=== PATIENT | female | born 1995 | race Caucasian/White ===

== ENCOUNTER 2020-12-18 13:14 | Emergency (ER) | payer MEDICAID, SELFPAY ==
[2020-12-18 13:26] VITALS: BP 138/77; PULSE 104; RESP 16; TEMP 36.6; O2SAT 95; BMI 41.6
--- NOTE | 2020-12-18 13:44 | HMH.EDUTC ---
[facility] [place] Clinical Impression: Asthma exacerbation Qualifiers: Asthma severity: unspecified severity Asthma persistence: unspecified Qualified Code(s): J45.901 - Unspecified asthma with (acute) exacerbation Disposition: Home, Self-Care Condition on Discharge: Good Instructions: DI for Asthma -- Adult Additional Instructions: Drink plenty of fluids. Take tylenol for pain or fever. Return if you begin to have difficulty breathing. Follow up with your regular doctor. GO TO THE ER FOR ANY WORSENING SYMPTOMS Prescriptions: Albuterol Sulfate [Albuterol 0.083% 2.5mg/3mL neb] 2.5 mg IH Q6HP PRN 30 Days #120 neb PRN Reason: Shortness Of Breath Transmission Status: Received by [facility] #[id number] predniSONE [Prednisone 20mg Tab] 20 mg PO BID 4 Days #8 tab Transmission Status: Received by [facility] #[id number] Azithromycin [Z-Yobani 250mg Tab*] 250 mg PO UD DOSE PK #6 tab Transmission Status: Received by [facility] #[id number] Referrals: Nellie Awad MD [Primary Care Provider] - Forms: Work/School Release Time of Disposition: 14:01 Medical Decision Making - Medical Records Medical records reviewed: No: I reviewed the patient's medical records. - Leo Inquiry Pt receiving controlled substance: No Vital Signs: 12/18/20 13:26 12/18/20 14:15 Temperature 98 F 98 F Temperature Source Oral Pulse Rate 88 Pulse Rate [Right] 104 H Respiratory Rate 16 19 Blood Pressure 127/71 Blood Pressure [Right Arm] 138/77 Blood Pressure Mean [Right Arm] 97 Blood Pressure Source [Right Arm] Automatic Cuff Blood Pressure Position [Right Arm] Sitting 02 Sat by Pulse Oximetry 95 Oxygen Delivery Method Room Air Orders (Tests/Meds): ED MEDICATIONS Discontinued Medications Generic Name Dose Route Start Last Admin Trade Name Freq PRN Reason Stop Dose Admin Albuterol Sulfate 2.5 mg 12/18/20 13:22 12/18/20 13:51 Albuterol 0.083% 2.5 Mg/3 Ml Neb IH 12/18/20 13:23 2.5 mg ONCE ONE [facility] [place] - General Stated complaint: soa, body feeling numb Time Seen by Provider: 12/18/20 13:46 Mode of Arrival: Ambulatory Source of Information: Patient Limitations: No Limitations Description of Symptoms (Recalled from Triage Doc. by RN): pt was push mowing the grass and she started having an asthma attack around 1240. she used her inhaler w/o any relief. she is still having soa and states her body is tingling. HEENT Symptoms (Recalled from RN notes): No Resp Symptoms (Recalled from RN notes): Yes (soa and asthma attack) Skin Symptoms (Recalled from RN notes): Yes (tingling sensation mostly around mouth and hands.) MS Symptoms (Recalled from RN notes): No Functional Status (Recalled from RN notes): na - History of Present Illness Provider Complaint: She has a history of asthma. Over the past 3 days she has been having worsening cough and congestion. She states that she has moved and lost her nebulizer machine and nebulizer medication. - Related Data Previous Rx's Medication Instructions Recorded Albuterol Sulfate [Albuterol 2.5 mg IH Q6HP PRN 30 Days #120 neb 12/18/20 0.083% 2.5mg/3mL neb] Azithromycin [Z-Yobani 250mg Tab*] 250 mg PO UD DOSE PK #6 tab 12/18/20 predniSONE [Prednisone 20mg 20 mg PO BID 4 Days #8 tab 12/18/20 Tab] Allergies Allergy/AdvReac Type Severity Reaction Status Date / Time No Known Allergies Allergy Verified 12/18/20 13:36 - Worker's Comp Is this a Worker's Comp case?: No [facility] History - Hepatitis A Screen Drug use history?: No High risk sexual behaviors?: No History of sexually transmitted infection?: No Currently employed?: No Childcare worker?: No Do you have indoor plumbing?: Yes Do you have electricity?: Yes Attestation statement:: This patient has been screened for Hepatitis A risk factors. I have reviewed the patient's past medical history: Yes - Social History Smoking Status: Nev
[2020-12-18 14:15] VITALS: BP 127/71; PULSE 88; RESP 19; TEMP 36.6
== END 2020-12-18 14:15 | disposition home or self-care (01) ==
PROVIDERS: Emergency Provider Nurse Practitioner Family; PCP Nurse Practitioner
DX: J45.901 Unspecified asthma with (acute) exacerbation (principal)
CPT/HCPCS: 99202; G0463

== ENCOUNTER 2022-02-09 10:15 | Emergency (ER) | payer MEDICAID, SELFPAY ==
--- NOTE | 2022-02-09 10:30 | XR_ITS ---
FINAL REPORT CLINICAL HISTORY: pain FINDINGS: LEFT ELBOW 3 views were obtained. There is no acute fracture or dislocation. The joint spaces are intact. There is no soft tissue abnormality. IMPRESSION: No acute bony abnormality. Reviewed, Interpreted and Dictated by Bradley Chavira III, MD Transcribed by Renetta Esquivel Authenticated and [facility]
--- NOTE | 2022-02-09 10:31 | XR_ITS ---
FINAL REPORT CLINICAL HISTORY: PT'S LEG GAVE OUT YESTERDAY, PAIN IN LT HIP FINDINGS: LEFT HIP Two views of the left hip including an AP pelvis demonstrate no acute fracture or dislocation. The joint spaces appear normal. The visualized bony structures are well aligned. No soft tissue abnormality is seen. IMPRESSION: No acute bony abnormality. Reviewed, Interpreted and Dictated by Bradley Chavira III, MD Transcribed by Renetta Esquivel Authenticated and [facility]
--- NOTE | 2022-02-09 10:32 | XR_ITS ---
FINAL REPORT CLINICAL HISTORY: PT FELL YESTERDAY FINDINGS: LEFT HUMERUS 2 views were obtained. There is no acute fracture or dislocation. The joint spaces are intact. There is no soft tissue abnormality. IMPRESSION: No acute bony abnormality. Reviewed, Interpreted and Dictated by Bradley Chavira III, MD Transcribed by Renetta Esquivel Authenticated and [facility]
--- NOTE | 2022-02-09 10:32 | XR_ITS ---
FINAL REPORT CLINICAL HISTORY: PT'S LEG GAVE OUT YESTERDAY, PAIN @ LATERAL EPICONDYLE FINDINGS: LEFT KNEE 3 views of the left knee were obtained. There is no acute fracture or dislocation. Visualized joint spaces are normally aligned. Soft tissues are unremarkable. IMPRESSION: No acute bony abnormality. Reviewed, Interpreted and Dictated by Bradley Chavira III, MD Transcribed by Renetta Esquivel Authenticated and [facility]
--- NOTE | 2022-02-09 10:46 | HMH.EDUTC ---
[facility] [place] Clinical Impression: Medial epicondylitis, left elbow, Left thigh pain Disposition: Home, Self-Care Condition on Discharge: Good Instructions: DI for Medial Epicondylitis, DI for Leg Pain Additional Instructions: Go home and rest. It would be best if you rested tomorrow too. No heavy lifting. No twisting. Take the medications as directed. The muscle relaxer (cyclobenzaprine--Flexeril) will make you drowsy, so don't drive or operate heavy machinery after taking it. Follow up with Dr. Gaviria (orthopedics) if you continue to have problems with your elbow or your leg. I put in a referral but you need to call his office and schedule an appointment. Follow up with your regular doctor. Follow up with your regular doctor. GO TO THE ER FOR ANY WORSENING SYMPTOMS OR CONCERN, ESPECIALLY BOWEL OR BLADDER ISSUES, SADDLE AREA NUMBNESS, FEVER, ETC Prescriptions: Cyclobenzaprine HCl [Cyclobenzaprine 10mg Tab] 10 mg PO BIDP PRN #20 tab PRN Reason: Muscle Spasm Transmission Status: Received by [facility] [place] methylPREDNISolone [Medrol] 4 mg PO DIRECTED 6 Days #21 packet Transmission Status: Received by [facility] [place] Referrals: Provider,MD Ayleen [Primary Care Provider] - Omar Gaviria MD [Staff Physician] - Forms: Work/School Release Time of Disposition: 11:39 Medical Decision Making - Medical Records Medical records reviewed: No: I reviewed the patient's medical records. - Leo Inquiry Pt receiving controlled substance: No Vital Signs: 02/09/22 10:47 02/09/22 11:44 Temperature 97.6 F 97.6 F Temperature Source Oral Pulse Rate 76 Pulse Rate [Left Radial] 76 Respiratory Rate 17 17 Blood Pressure 164/68 H Blood Pressure [Right Arm] 164/68 H Blood Pressure Mean [Right Arm] 100 02 Sat by Pulse Oximetry 95 [facility] [place] - General Stated complaint: left leg and left elbow pain, no accidnet Time Seen by Provider: 02/09/22 10:46 - History of Present Illness Provider Complaint: She c/o left elbow and left thigh pain for the past 1 day. Her elbow is most sore on the medial aspect of it. She denies any known injury or fall to her arm or leg. - Related Data Previous Rx's Medication Instructions Recorded Albuterol Sulfate [Albuterol 2.5 mg IH Q6HP PRN 30 Days #120 neb 12/18/20 0.083% 2.5mg/3mL neb] Azithromycin [Z-Yobani 250mg Tab*] 250 mg PO UD DOSE PK #6 tab 12/18/20 predniSONE [Prednisone 20mg 20 mg PO BID 4 Days #8 tab 12/18/20 Tab] Cyclobenzaprine HCl 10 mg PO BIDP PRN #20 tab 02/09/22 [Cyclobenzaprine 10mg Tab] methylPREDNISolone [Medrol] 4 mg PO DIRECTED 6 Days #21 02/09/22 packet Allergies Allergy/AdvReac Type Severity Reaction Status Date / Time No Known Allergies Allergy Verified 02/09/22 10:50 [facility] History - Hepatitis A Screen Attestation statement:: This patient has been screened for Hepatitis A risk factors. I have reviewed the patient's past medical history: Yes - Social History Smoking Status: Never smoker Alcohol Intake: never Occupational Status: employed ROS Obtained: Yes All systems reviewed & no additional complaints - Constitutional Constitutional: Denies chills, Denies fever(s) - Musculoskeletal Musculoskeletal: Reports as per HPI - Integumentary/Breasts Skin/Breast: Denies redness, Denies rash, Denies wounds - Neurologic Neurologic: Denies tingling/numbness/burning sensations Physical Exam - General General appearance: alert, in no apparent distress - Head Head exam: atraumatic, normocephalic, normal inspection - Eye Eye exam: Present: normal appearance, PERRL, EOMI - ENT ENT exam: Present: normal exam, normal oropharynx, mucous membranes moist, TM's normal bilaterally, normal external ear exam - Neck Neck exam: Present: normal inspection, full ROM, trachea midline. Absent: meningismus, lymphadenopathy - Chest Chest inspection: Present: normal inspection, s
[2022-02-09 10:47] VITALS: BP 164/68; PULSE 76; RESP 17; TEMP 36.4; O2SAT 95; BMI 41.3
[2022-02-09 11:44] VITALS: BP 164/68; PULSE 76; RESP 17; TEMP 36.4
== END 2022-02-09 11:47 | disposition home or self-care (01) ==
PROVIDERS: Emergency Provider Nurse Practitioner Family
DX: M77.02 Medial epicondylitis, left elbow (principal); M79.652 Pain in left thigh
CPT/HCPCS: 73060; 73080; 73502; 73564; 99284

== ENCOUNTER 2022-05-01 21:55 | Emergency (ER) | payer MEDICAID, SELFPAY ==
[2022-05-01 21:55] VITALS: BP 139/70; PULSE 118; RESP 20; TEMP 37.1; O2SAT 97; BMI 42.9
[2022-05-01 21:56] VITALS: BMI 42.9
--- NOTE | 2022-05-01 21:56 | XR_ITS ---
PROCEDURE INFORMATION: Exam: XR Chest Exam date and time: 05/01/2022 10:10 PM Age: 26 years old Clinical indication: Sternal or substernal pain; Additional info: Cp TECHNIQUE: Imaging protocol: Radiologic exam of the chest. Views: 2 views. COMPARISON: CR XR HUMERUS LT 02/09/2022 11:04 AM FINDINGS: Lungs: No consolidation. Pleural spaces: No pneumothorax. Heart/Mediastinum: No cardiomegaly. Bones/joints: No acute fracture. IMPRESSION: No acute findings.
[2022-05-01 22:02] LABS: Influenza A, PCR Not Detected (NotDetected); Influenza B, PCR Not Detected (NotDetected)
[2022-05-01 22:05] LABS: Basophils # 0.2 K/mm3 (0-0.2); Basophils % 1.4 % (0.1-2.0); Eosinophils # 0.5 K/mm3 (0.0-0.4); Eosinophils % 4.7 % (0.1-12.0); Hematocrit 43.6 % (37.0-47.0); Hemoglobin 14.2 g/dL (12.2-16.2); Lymphocytes # 1.8 K/mm3 (0.7-4.5); Lymphocytes % 17.2 % (10-50); Mean Corpuscular HGB Conc 32.6 g/dL (31.8-35.4); Mean Corpuscular Volume 85.9 fl (81-99); Mean Platelet Volume 8.1 fl (7.4-10.4); Monocytes # 0.4 K/mm3 (0.1-1.0); Monocytes % 4.1 % (1.7-9.3); Neutrophils # 7.5 K/mm3 (1.8-7.8); Neutrophils % 72.4 % (37.0-80.0); Platelet Count 343 K/mm3 (142-424); Red Blood Count 5.08 M/mm3 (4.20-5.40); Red Cell Distribution Width 14.5 % (11.5-17.5); White Blood Count 10.4 K/mm3 (4.8-10.8)
[2022-05-01 22:06] VITALS: PULSE 120
[2022-05-01 22:11] LABS: Alanine Aminotransferase 21 U/L (12-78); Albumin Level 3.9 g/dl (3.5-5.0); Alkaline Phosphatase 98 U/L (38-126); Amylase 74 U/L (30-110); Anion Gap 9.7 mEq/L (5-15); Aspartate Amino Transferase 19 U/L (14-36); Bilirubin,Direct 0.1 mg/dl (0.0-0.4); Bilirubin,Indirect 0.3 mg/dL (0.0-0.9); Bilirubin,Total 0.4 mg/dl (0.2-1.3); Bilirubin,Unconjugated 0.3 mg/dL (0.0-1.1); Blood Urea Nitrogen 14 mg/dl (7-17); Calcium 8.8 mg/dl (8.4-10.2); Carbon Dioxide 27 mmol/L (22.0-30.0); Chloride 107 mmol/L (98-107); Creatinine Clearance Estimated 119 mL/min (50-200); Estimated Glomerular Filt Rate 102 ml/min (>60); GFR (African American) 123 ML/MIN (>60); Glucose 131 mg/dl (74-100); Lipase 81 U/L (23-300); Magnesium 1.6 mg/dl (1.6-2.3); Potassium 3.7 mmoL/L (3.5-5.1); Sodium 140 mmol/L (136-145); Total Protein,Serum 7.3 g/dl (6.3-8.2)
[2022-05-01 22:15] LABS: HCG Qualitative, Serum Negative (Negative)
[2022-05-01 22:25] LABS: Troponin I < 0.01 ng/ml (0.00-0.034)
[2022-05-01 22:28] LABS: Procalcitonin 0.068 ng/mL (0.0-2.0)
[2022-05-01 22:30] LABS: Microscopic, Urine URINE MICROSCOPIC (MICROSCOPIC)
[2022-05-01 22:32] LABS: Appearance,Urine CLEAR (Clear); Bilirubin,Urine Negative (Negative); Blood, Urine Negative (Negative); Color,Urine YELLOW (Yellow); Glucose,Urine (UA) Negative (Negative); Ketones,Urine Negative (Negative); Leukocyte Esterase,Urine Negative (Negative); Nitrate,Urine Negative (Negative); PH,Urine 5.5 (5.0-8.5); Protein,Urine Negative (Negative); Specific Gravity, Urine 1.025 (1.005-1.030); Urobilinogen,Urine 0.2 EU/dl (0.2)
[2022-05-01 22:33] LABS: Coronavirus 19, PCR Detected (NotDetected)
[2022-05-01 22:35] LABS: Erythrocyte Sedimentation Rate 42 mm/hr (0-20)
[2022-05-01 22:43] LABS: Amorphous Sediment,Urine Trace /lpf; Bacteria,Urine Trace /lpf; WBC,Urine Occasional #/hpf (0-3)
[2022-05-01 23:00] VITALS: BP 136/81; PULSE 101; RESP 16; O2SAT 98
[2022-05-01 23:30] VITALS: BP 131/82; PULSE 111; RESP 16; O2SAT 98
--- NOTE | 2022-05-01 23:33 | HMH.EDCP ---
Discharge Plan Disposition Patient Disposition: Home, Self-Care Chief Complaint: Chest Pain Prescriptions Prescriptions: No Action albuterol sulfate 2.5 MG/NEB solution for nebulization 2.5 mg IH Q6HP PRN (Reason: Shortness Of Breath) 30 Days Qty: 120 5RF azithromycin 250 MG tablet 250 mg PO UD DOSE PK Qty: 6 0RF Rx Instructions: Take two (2) tablets today, then one (1) tablet days #2 thru #5 prednisone 20 MG tablet 20 mg PO BID 4 Days Qty: 8 0RF cyclobenzaprine 10 MG tablet 10 mg PO BIDP PRN (Reason: Muscle Spasm) Qty: 20 0RF methylprednisolone 4 MG tablets,dose pack 4 mg PO DIRECTED 6 Days Qty: 21 0RF Referrals Follow up/Referrals: Jolynn Aguirre APRN [Primary Care Provider] - See instructions Clinical Impressions Clinical Impression: Atypical chest pain, COVID-19 Stand Alone Forms Stand Alone Forms: Work/School Release Instructions Patient Instructions: DI for COVID-19 (Suspected or Confirmed ) Discharge ED Provider: Aditya Fontana Chest Pain HPI General Chief Complaint: Chest Pain Stated Complaint: chest pain Time Seen by Provider: 05/01/22 23:33 Mode of Arrival: Family Vehicle Source of Information: Patient Limitations: No Limitations Description of Symptoms (Recalled from ER Triage Doc. by RN): Pt c/o midsternal chest pain that has been intermittent and sharp after dinner and has been present for 2 hr. 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 Denies back pain, n/v/d, headache, or radiating arm pain. She does report dry cough, chills, and exposure to covid about 1 wk ago. Denies any cardiac hx or significant PMH. 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 History of Present Illness HPI narrative: cough and ongoing chest pain after exposure to covid-19 complaint: chest pain indicative of cardiac Onset (ago): day(s) Duration: intermittent Activity at onset: other (assoc with illness ) Pain location: left chest Severity: moderate Quality: aching Pain radiation: none Context: recent illness Risk Factors for CAD: Family Hx of CAD Treatments prior to or on arrival for Cardiac Chest Pain: aspirin ABIMBOLA Score for Non-Stemi Age of Patient: <30 years old Heart Rate: 70-89 bpm Systolic Blood Pressure: 140-159 mmHg Serum Creatinine: 0.40-0.79 mg/dl CHF [place] Class: I-No CHF Other Risk Factors: None Non-Stemi Risk Score: 37 Related Data On Oral Contraceptives: No Previous Rx's Medication Instructions Recorded albuterol sulfate 2.5 mg/3 mL 2.5 mg (3 mL) IH Q6HP PRN 12/18/20 (0.083 %) solution for nebulization Shortness Of Breath 30 days #120 neb azithromycin 250 mg tablet 250 mg PO UD DOSE PK #6 tabs 12/18/20 prednisone 20 mg tablet 20 mg PO BID 4 days #8 tabs 12/18/20 cyclobenzaprine 10 mg tablet 10 mg PO BIDP PRN Muscle Spasm #20 02/09/22 tabs methylprednisolone 4 mg tablets in 4 mg PO DIRECTED 6 days #21 02/09/22 a dose pack packets Allergies Allergy/AdvReac Type Severity Reaction Status Date / Time No Known Allergies Allergy Verified 02/09/22 10:50 PFSH PFSH Social History Smoking Status: Never smoker alcohol intake: never current occupational status: employed Travel in the last 8 weeks: None ROS Obtained: Yes All systems reviewed & no additional complaints except as documented Constitutional Constitutional: Denies fever(s) Physical Exam General General appearance: alert Head Head exam: normocephalic Eye Eye exam: Present PERRL and EOMI ENT ENT exam: Present mucous membranes moist Neck Neck exam: Present trachea midline Chest Chest inspection: Present normal inspection Respiratory Respiratory exam: Present normal lung sounds bilaterally; Absent respiratory distress Cardiovascular Cardiovascular exam: Present regular rate; Absent systolic murmur, rubs or gallop Abdominal Exam Abdominal exam: Present soft Extremities Exam Extremities exam: Absent tenderness Neurological Exam Neurological exam: Present alert, oriented X3 and CN II-XII intact Psychiatric
--- NOTE | 2022-05-01 23:39 | ECG_ITS ---
APPROVED REPORT Exam: Resting ECG HR:121 bpm ECG Measurements Heart Rate 121 AXES NJ 164 P 56 QRSd 101 QRS 101 QT 316 T 19 QTc 388 Conclusion SINUS TACHYCARDIA RIGHT AXIS DEVIATION [QRS AXIS > 100] ABNORMAL ECG UNCONFIRMED REPORT Electronically signed by : Julius Romeo MD 05/02/2022 22:36:53
[2022-05-02 00:31] VITALS: BP 144/77; PULSE 89; RESP 16; TEMP 37.1; O2SAT 98
== END 2022-05-01 23:50 | disposition home or self-care (01) ==
PROVIDERS: Emergency Provider Emergency Medicine; PCP Nurse Practitioner Family
DX: U07.1 COVID-19 (principal); R07.89 Other chest pain
CPT/HCPCS: 71046; 80048; 80076; 81001; 82150; 83690; 83735; 84145; 84484; 84703; 85025; 85651; 86140; 93005; 96360; 99284; C9803; U0003; U0005

== ENCOUNTER → 2022-05-19 14:15 | Outpatient (CLI) | payer MEDICAID, SELFPAY ==
[2022-05-19 18:28] LABS: Basophils # 0.2 K/mm3 (0-0.2); Basophils % 1.8 % (0.1-2.0); Eosinophils # 0.4 K/mm3 (0.0-0.4); Eosinophils % 4.9 % (0.1-12.0); Hematocrit 41.7 % (37.0-47.0); Hemoglobin 13.8 g/dL (12.2-16.2); Lymphocytes # 2.8 K/mm3 (0.7-4.5); Mean Corpuscular HGB Conc 33.1 g/dL (31.8-35.4); Mean Corpuscular Hemoglobin 28.4 pg (27.0-31.2); Mean Corpuscular Volume 85.9 fl (81-99); Mean Platelet Volume 8.8 fl (7.4-10.4); Monocytes # 0.6 K/mm3 (0.1-1.0); Monocytes % 7.2 % (1.7-9.3); Neutrophils # 4.8 K/mm3 (1.8-7.8); Neutrophils % 54.1 % (37.0-80.0); Platelet Count 392 K/mm3 (142-424); Red Blood Count 4.85 M/mm3 (4.20-5.40); Red Cell Distribution Width 14.4 % (11.5-17.5); White Blood Count 8.9 K/mm3 (4.8-10.8)
[2022-05-19 18:43] LABS: Alanine Aminotransferase 25 U/L (12-78); Albumin Level 3.7 g/dl (3.5-5.0); Albumin/Globulin Ratio 1.2 (1.1-1.8); Alkaline Phosphatase 96 U/L (38-126); Anion Gap 13.1 mEq/L (5-15); Aspartate Amino Transferase 22 U/L (14-36); Bilirubin,Total 0.6 mg/dl (0.2-1.3); Blood Urea Nitrogen 14 mg/dl (7-17); Calcium 8.8 mg/dl (8.4-10.2); Carbon Dioxide 29 mmol/L (22.0-30.0); Chloride 102 mmol/L (98-107); Estimated Glomerular Filt Rate 87 ml/min (>60); GFR (African American) 106 ML/MIN (>60); Glucose 99 mg/dl (74-100); Potassium 4.1 mmoL/L (3.5-5.1); Sodium 140 mmol/L (136-145); Total Protein,Serum 6.7 g/dl (6.3-8.2)
[2022-05-19 18:49] LABS: C-Reactive Protein 4.7 mg/L (0-4)
[2022-05-19 19:15] LABS: Hemoglobin A1C 5.4 % (4.0-6.0)
[2022-05-19 19:22] LABS: Erythrocyte Sedimentation Rate 41 mm/hr (0-20)
[2022-05-19 19:34] LABS: Vitamin B12 331 pg/mL (239-931)
[2022-05-21 09:54] LABS: RA Latex Turbid. <10.0 IU/mL (<14.0)
[2022-05-23 13:09] LABS: Anti-Centromere B Antibodies <0.2 AI (0.0-0.9); Anti-DNA (DS) Ab Qn 3 IU/mL (0-9); Anti-Jo-1 <0.2 AI (0.0-0.9); Anti-Smith Antibody <0.2 AI (0.0-0.9); Antichromatin Antibodies <0.2 AI (0.0-0.9); Antiscleroderma-70 Antibodies <0.2 AI (0.0-0.9); RNP Antibodies <0.2 AI (0.0-0.9); Sjogren's Anti-SS-A <0.2 AI (0.0-0.9); Sjogren's Anti-SS-B <0.2 AI (0.0-0.9)
[2022-05-24 00:07] LABS: Anti-Cyclic Citrullinated Pept 12 units (0-19)
== END ==
PROVIDERS: Physician Assistant; PCP Nurse Practitioner Family; Visit Provider Nurse Practitioner Family
DX: M79.604 Pain in right leg (principal); M79.605 Pain in left leg; R73.09 Other abnormal glucose
CPT/HCPCS: 80053; 82607; 83036; 85025; 85651; 86140; 86200; 86225; 86235; 86431

== ENCOUNTER 2022-09-06 11:41 | Emergency (ER) | payer MEDICAID, SELFPAY ==
[2022-09-06 11:45] VITALS: BP 131/76; PULSE 97; RESP 16; TEMP 36.3; O2SAT 97; BMI 42.9
[2022-09-06 11:55] VITALS: BP 131/76; PULSE 97; RESP 16; TEMP 36.3; O2SAT 97
--- NOTE | 2022-09-06 12:02 | EXP.UTC ---
Discharge Plan Disposition Patient Disposition: Home, Self-Care Condition: Good Prescriptions Prescriptions: New ondansetron 4 mg tablet,disintegrating 4 mg PO Q8H PRN (Reason: nausea and vomiting) Qty: 10 0RF amoxicillin-pot clavulanate 875-125 mg Tablet 1 tab PO Q12H Qty: 20 0RF meclizine 25 mg tablet 25 mg PO TID PRN (Reason: dizziness) Qty: 15 0RF ofloxacin 0.3 % drops 10 drp otic (ear) Q12H 14 Days Qty: 10 0RF No Action albuterol sulfate [ProAir HFA] 90 mcg/actuation HFA aerosol inhaler 2 puff inhalation Q6H PRN (Reason: shortness of breath or wheezing) Qty: 8.5 1RF medroxyprogesterone [Depo-Provera] 150 mg/mL suspension 150 mg IM [id number] Qty: 1 4RF Referrals Follow up/Referrals: Cherelle Mueller PA [Primary Care Provider] - See instructions Activity Restrictions/Add. Instructions Additional Instructions/Restrictions: Take medication as prescribed Follow up with your Family Doctor if no improvement or any worsening of symptoms Straight to ER if any life threatening symptoms, confusion or worsening of dizziness You took Zofran and Meclizine in the office today do not take another dose until at least 830pm Clinical Impressions Clinical Impression: Otitis media Stand Alone Forms Stand Alone Forms: Work/School Release Instructions Patient Instructions: Vertigo, Meclizine, Nausea and Vomiting-Adult, Ondansetron Discharge ED Provider: Kecia Cartwright [facility] General Stated complaint: vomiting,dizzy Mode of Arrival: Ambulatory Source of Information: Patient Limitations: No Limitations Time Seen by Provider: 09/06/22 12:02 Description of Symptoms (Recalled from Triage Doc. by RN): PATIENT C/O VOMITING, DIZZINESS, AND FEELING OFF SINCE LAST NIGHT HEENT Symptoms (Recalled from RN notes): No Resp Symptoms (Recalled from RN notes): No Skin Symptoms (Recalled from RN notes): No MS Symptoms (Recalled from RN notes): No Functional Status (Recalled from RN notes): WNL History of Present Illness Provider Complaint: Patient states that she has been feeling off like she is getting sick feeling tired and achy and having N/V and dizziness when she turns her head or changes positions too quickly States that when she moves too quickly it makes her sick at her stomach Related Data Previous Rx's Medication Instructions Recorded albuterol sulfate 90 mcg/actuation 2 puff inhalation Q6H PRN 05/19/22 aerosol inhaler (ProAir HFA) shortness of breath or wheezing #8.5 grams medroxyprogesterone 150 mg/mL 150 mg IM [id number] #1 mL 08/05/22 intramuscular suspension (Depo-Provera) amoxicillin 875 mg-potassium 1 tab PO Q12H #20 tabs 09/06/22 clavulanate 125 mg tablet meclizine 25 mg tablet 25 mg PO TID PRN dizziness #15 tabs 09/06/22 ofloxacin 0.3 % ear drops 10 drp otic (ear) Q12H 14 days #10 09/06/22 mL ondansetron 4 mg disintegrating 4 mg PO Q8H PRN nausea and 09/06/22 tablet vomiting #10 tabs Allergies Allergy/AdvReac Type Severity Reaction Status Date / Time No Known Allergies Allergy Verified 08/05/22 09:58 Worker's Comp Is this a Worker's Comp case?: No [facility] Disclaimer: The information contained in this section may have been updated after the patient was seen, as this information can be updated by other users. Medical History (Updated 09/06/22 @ 12:24 by Kecia Cartwright APRN) Asthma Contraception management Elevated glucose Inclusion cyst of vulva Medial epicondylitis, left elbow Surgical History (Updated 09/06/22 @ 11:54 by Rocío Benitez RN) History of cholecystectomy History of tympanostomy tube placement Social History (Updated 09/06/22 @ 11:54 by Rocío Benitez RN) Smoking Status: Never smoker alcohol intake: never current occupational status: employed Travel in the last 8 weeks: None ROS Obtained: Yes All systems reviewed & no additional complaints except as documented and Yes Systems reviewed as appropriate &
[2022-09-06 12:07] LABS: UTC Influenza A Antigen Negative (Negative)
[2022-09-06 12:08] LABS: UTC Influenza B Antigen Negative (Negative)
== END 2022-09-06 12:27 | disposition home or self-care (01) ==
PROVIDERS: Emergency Provider Nurse Practitioner; PCP Physician Assistant
DX: H66.90 Otitis media, unspecified, unspecified ear (principal)
CPT/HCPCS: 87804; 99212; 99213; G0463

== ENCOUNTER 2023-02-01 11:02 | Emergency (ER) | payer MEDICAID, SELFPAY ==
[2023-02-01 11:03] VITALS: BP 142/85; PULSE 87; RESP 17; TEMP 36.8; O2SAT 97; BMI 42.7
--- NOTE | 2023-02-01 11:30 | HMH.EDGENADL ---
Discharge Plan Disposition Patient Disposition: Home, Self-Care Condition: Fair Prescriptions Prescriptions: New dicyclomine 20 mg tablet 20 mg PO QID PRN (Reason: abdominal pain) Qty: 20 0RF No Action albuterol sulfate [ProAir HFA] 90 mcg/actuation HFA aerosol inhaler 2 puff inhalation Q6H PRN (Reason: shortness of breath or wheezing) Qty: 8.5 1RF medroxyprogesterone [Depo-Provera] 150 mg/mL suspension 150 mg IM [id number] Qty: 1 4RF meclizine 25 mg tablet 25 mg PO TID PRN (Reason: dizziness) Qty: 15 0RF Referrals Follow up/Referrals: Cherelle Mueller PA [Primary Care Provider] - See instructions Clinical Impressions Clinical Impression: Gastroenteritis, Food poisoning, Dehydration Instructions Patient Instructions: DI for Abdominal Pain-Adult, DI for Diarrhea and Traveler's Diarrhea -- Adult Discharge ED Provider: Robert Martinez General Adult HPI General Chief complaint: Nausea/Vomiting/Diarrhea Stated complaint: light headed, vomiting, diarrhea Time Seen by Provider: 02/01/23 11:44 Mode of Arrival: Ambulatory Source of Information: Patient Limitations: No Limitations Description of Symptoms (Recalled from ER Triage Doc. by RN): pt to ED with nausea, vomiting and diarrhea since last night after eating dinner. pt denies any abd. pain on palpation or urinary symptoms. History of Present Illness HPI narrative: This is a 27-year-old white female who stated that shortly after dinner last night she started developing profuse watery diarrhea nausea and vomiting. Patient states she took a vomiting pill and has stopped the vomiting. Patient also complaining of left-sided abdominal pain no fevers no chills no melena hematochezia or hematemesis. Patient describes the pain as crampy and intermittent nonprovoked and none palliated. No dysuria pyuria hematuria. Patient denies any recent antibiotic use. Related Data Previous Rx's Medication Instructions Recorded albuterol sulfate 90 mcg/actuation 2 puff inhalation Q6H PRN 05/19/22 aerosol inhaler (ProAir HFA) shortness of breath or wheezing #8.5 grams medroxyprogesterone 150 mg/mL 150 mg IM [id number] #1 mL 08/05/22 intramuscular suspension (Depo-Provera) meclizine 25 mg tablet 25 mg PO TID PRN dizziness #15 tabs 09/06/22 dicyclomine 20 mg tablet 20 mg PO QID PRN abdominal pain 02/01/23 #20 tabs Allergies Allergy/AdvReac Type Severity Reaction Status Date / Time No Known Allergies Allergy Verified 12/06/22 11:27 [facility] Disclaimer: The information contained in this section may have been updated after the patient was seen, as this information can be updated by other users. Medical History (Updated 02/01/23 @ 12:44 by Robert Martinez MD) Asthma Contraception management Elevated glucose Inclusion cyst of vulva Medial epicondylitis, left elbow Surgical History (Updated 09/06/22 @ 11:54 by Rocío Benitez, RN) History of cholecystectomy History of tympanostomy tube placement Social History (Updated 09/06/22 @ 11:54 by Rocío Benitez, RN) Smoking Status: Never smoker alcohol intake: never current occupational status: employed Travel in the last 8 weeks: None ROS Obtained: Yes All systems reviewed & no additional complaints except as documented Skin no rash or lesions HEENT no runny nose sore throat Pulmonary no cough or shortness of breath Cardiovascular no chest pain pressure heaviness GI see HPI no dysuria pyuria hematuria Musculoskeletal no neck or back pain Endocrine no polydipsia polyuria or polyphasia Psych no SI or HI The rest of the systems were reviewed and found to be negative Physical Exam Narrative Physical exam: Skin: Warm and dry HEENT: Normocephalic atraumatic extract muscles are intact pupils are equal and reactive to light Neck: Supple nontender Lungs: Clear to auscultation Heart: Regular rate and rhythm Abdomen: NABS soft with left upper quadrant and left lower quad
[2023-02-01 11:38] LABS: Microscopic, Urine URINE MICROSCOPIC (MICROSCOPIC)
[2023-02-01 11:43] LABS: Basophils # 0.1 K/mm3 (0-0.2); Basophils % 0.9 % (0.1-2.0); Eosinophils # 0.4 K/mm3 (0.0-0.4); Eosinophils % 4.4 % (0.1-12.0); Lymphocytes # 1.8 K/mm3 (0.7-4.5); Lymphocytes % 21.2 % (10-50); Mean Corpuscular HGB Conc 31.7 g/dL (31.8-35.4); Mean Corpuscular Hemoglobin 26.3 pg (27.0-31.2); Mean Corpuscular Volume 82.9 fl (81-99); Mean Platelet Volume 7.5 fl (7.4-10.4); Monocytes # 0.5 K/mm3 (0.1-1.0); Monocytes % 6.3 % (1.7-9.3); Neutrophils # 5.6 K/mm3 (1.8-7.8); Neutrophils % 67.2 % (37.0-80.0); Platelet Count 356 K/mm3 (142-424); Red Blood Count 5.31 M/mm3 (4.20-5.40); Red Cell Distribution Width 14.9 % (11.5-17.5); White Blood Count 8.3 K/mm3 (4.8-10.8)
[2023-02-01 11:44] LABS: Appearance,Urine SL CLOUDY (Clear); Bilirubin,Urine Negative (Negative); Blood, Urine TRACE-I (Negative); Color,Urine YELLOW (Yellow); Glucose,Urine (UA) Negative (Negative); Ketones,Urine Negative (Negative); Leukocyte Esterase,Urine 2+ (Negative); Nitrate,Urine Negative (Negative); PH,Urine 5.5 (5.0-8.5); Protein,Urine TRACE (Negative); Specific Gravity, Urine >= 1.030 (1.005-1.030); Urobilinogen,Urine 0.2 EU/dl (0.2)
[2023-02-01 11:45] LABS: Urine Pregnancy, HCG Qual. Negative (Negative)
[2023-02-01 11:46] LABS: Chloride 107 mmol/L (98-107); Potassium 3.9 mmoL/L (3.5-5.1); Sodium 141 mmol/L (136-145)
[2023-02-01 11:49] LABS: Alanine Aminotransferase 25 U/L (12-78); Albumin Level 4.1 g/dl (3.5-5.0); Albumin/Globulin Ratio 1.1 (1.1-1.8); Alkaline Phosphatase 97 U/L (38-126); Anion Gap 13.9 mEq/L (5-15); Aspartate Amino Transferase 22 U/L (14-36); Bilirubin,Total 1.2 mg/dl (0.2-1.3); Blood Urea Nitrogen 10 mg/dl (7-17); Calcium 8.9 mg/dl (8.4-10.2); Carbon Dioxide 24 mmol/L (22.0-30.0); Creatinine Clearance Estimated 118 mL/min (50-200); Estimated Glomerular Filt Rate 101 ml/min (>60); GFR (African American) 122 ML/MIN (>60); Globulin 3.7 g/dL (1.3-3.2); Glucose 110 mg/dl (74-100); Lipase 53 U/L (23-300); Total Protein,Serum 7.8 g/dl (6.3-8.2)
[2023-02-01 12:39] LABS: Bacteria,Urine 1+ /lpf; RBC,Urine Occasional #/hpf (0-3)
[2023-02-01 13:25] VITALS: BP 125/97; PULSE 89; RESP 16; TEMP 36.9; O2SAT 96
== END 2023-02-01 13:26 | disposition home or self-care (01) ==
PROVIDERS: Emergency Provider Emergency Medicine; PCP Physician Assistant
DX: E86.0 Dehydration (principal); K52.9 Noninfective gastroenteritis and colitis, unspecified; J45.909 Unspecified asthma, uncomplicated
CPT/HCPCS: 80053; 81001; 81025; 83690; 85025; 87086; 96360; 96361; 99284; 99285

== ENCOUNTER 2023-05-23 23:15 | Emergency (ER) | payer MEDICAID, SELFPAY ==
[2023-05-23 23:16] VITALS: BP 154/80; PULSE 87; RESP 16; TEMP 36.9; O2SAT 95; BMI 43.0
--- NOTE | 2023-05-23 23:25 | HMH.EDGENADL ---
Discharge Plan Disposition Patient Disposition: Home, Self-Care Condition: Good Prescriptions Prescriptions: New ondansetron 4 mg tablet,disintegrating 4 mg PO Q6H PRN (Reason: nausea and vomiting) Qty: 15 0RF Proair Digihaler 90 mcg/actuation aero powdr breath act w/sensor 2 inh inhalation Q6H PRN (Reason: shortness of breath or wheezing) Qty: 1 0RF No Action albuterol sulfate [ProAir HFA] 90 mcg/actuation HFA aerosol inhaler 2 puff inhalation Q6H PRN (Reason: shortness of breath or wheezing) Qty: 8.5 1RF Referrals Follow up/Referrals: Cherelle Mueller PA [Primary Care Provider] - See instructions Activity Restrictions/Add. Instructions Additional Instructions/Restrictions: You were evaluated in the emergency department today with sore throat, congestion, cough, shortness of breath, nausea, vomiting. Your labs are reassuring, you do not have urinary tract infection, you do not require further work-up or intervention. Your bilirubin was slightly high, make an appointment with your primary care physician for reevaluation of this in 2 to 3 days. You have been prescribed Zofran for management of your nausea and vomiting. Take this as directed if needed for symptoms. Drink plenty of fluids. Use your albuterol inhaler up to 2 puffs every 4 hours if needed for shortness of breath. Take Tylenol and ibuprofen as needed for pain, sore throat. Return to the emergency department with new or worsening symptoms Clinical Impressions Clinical Impression: Acute viral syndrome, Hyperbilirubinemia Nausea & vomiting Qualifiers: Vomiting type: unspecified Qualified Code(s): R11.2 - Nausea with vomiting, unspecified Discharge ED Provider: Richy Arguello General Adult HPI General Chief complaint: Upper Respiratory Infection Stated complaint: sore throat, nausea, soa Time Seen by Provider: 05/23/23 23:17 History of Present Illness HPI narrative: This 27-year-old female with a history of chronic asthma who takes albuterol as needed presents to the emergency department with 2 days of cough, congestion, sore throat, nausea, and a few episodes of vomiting yesterday. Patient states she has taken her albuterol inhaler once today which did help her breathing. She states she is not very worried about COVID and does not want a test at this time. She denies fever, dysuria but endorses a few episodes of diarrhea, not bloody or black. She denies bloody or bilious emesis. Patient has not taken any other medications for her symptoms. Related Data Previous Rx's Medication Instructions Recorded albuterol sulfate 90 mcg/actuation 2 puff inhalation Q6H PRN 05/19/22 aerosol inhaler (ProAir HFA) shortness of breath or wheezing #8.5 grams albuterol sulfate 90 mcg/actuation 2 inh inhalation Q6H PRN shortness 05/24/23 breath activated powder of breath or wheezing #1 ea inhaler,sensor (Proair Digihaler) ondansetron 4 mg disintegrating 4 mg PO Q6H PRN nausea and 05/24/23 tablet vomiting #15 tabs Allergies Allergy/AdvReac Type Severity Reaction Status Date / Time No Known Allergies Allergy Verified 02/22/23 08:32 [facility] Disclaimer: The information contained in this section may have been updated after the patient was seen, as this information can be updated by other users. Medical History Asthma Medial epicondylitis, left elbow Surgical History History of cholecystectomy History of tympanostomy tube placement Family History Father Cancer Coronary artery disease Kidney disease Social History Smoking Status: Never smoker alcohol intake: never current occupational status: employed Travel in the last 8 weeks: None ROS Obtained: Yes All systems reviewed & no additional complaints e
[2023-05-23 23:44] LABS: Microscopic, Urine URINE MICROSCOPIC (MICROSCOPIC)
[2023-05-23 23:50] LABS: Appearance,Urine CLEAR (Clear); Bilirubin,Urine Negative (Negative); Blood, Urine Negative (Negative); Color,Urine YELLOW (Yellow); Glucose,Urine (UA) Negative (Negative); Ketones,Urine Negative (Negative); Leukocyte Esterase,Urine 1+ (Negative); Nitrate,Urine Negative (Negative); Protein,Urine Negative (Negative); Specific Gravity, Urine 1.025 (1.005-1.030)
[2023-05-23 23:53] LABS: Basophils # 0.1 K/mm3 (0-0.2); Basophils % 0.6 % (0.1-2.0); Eosinophils # 0.5 K/mm3 (0.0-0.4); Eosinophils % 3.4 % (0.1-12.0); Lymphocytes # 2.9 K/mm3 (0.7-4.5); Lymphocytes % 21.5 % (10-50); Mean Corpuscular HGB Conc 31.8 g/dL (31.8-35.4); Mean Corpuscular Hemoglobin 26.7 pg (27.0-31.2); Mean Platelet Volume 7.8 fl (7.4-10.4); Monocytes # 0.9 K/mm3 (0.1-1.0); Monocytes % 6.5 % (1.7-9.3); Neutrophils % 67.9 % (37.0-80.0); Platelet Count 341 K/mm3 (142-424); Red Blood Count 5.24 M/mm3 (4.20-5.40); Red Cell Distribution Width 14.4 % (11.5-17.5); White Blood Count 13.3 K/mm3 (4.8-10.8)
[2023-05-24 00:04] LABS: Alanine Aminotransferase 23 U/L (12-78); Albumin Level 4.1 g/dl (3.5-5.0); Albumin/Globulin Ratio 1.1 (1.1-1.8); Alkaline Phosphatase 83 U/L (38-126); Anion Gap 11.5 mEq/L (5-15); Aspartate Amino Transferase 20 U/L (14-36); Bilirubin,Total 1.4 mg/dl (0.2-1.3); Blood Urea Nitrogen 11 mg/dl (7-17); Calcium 9.1 mg/dl (8.4-10.2); Carbon Dioxide 27 mmol/L (22.0-30.0); Chloride 106 mmol/L (98-107); Creatinine Clearance Estimated 104 mL/min (50-200); Estimated Glomerular Filt Rate 87 ml/min (>60); GFR (African American) 105 ML/MIN (>60); Globulin 3.6 g/dL (1.3-3.2); Glucose 122 mg/dl (74-100); Potassium 3.5 mmoL/L (3.5-5.1); Sodium 141 mmol/L (136-145); Total Protein,Serum 7.7 g/dl (6.3-8.2)
[2023-05-24 00:11] LABS: Squamous Epithelial Cell,Urine Occasional #/hpf (0-5)
[2023-05-24 00:54] VITALS: BP 114/48; PULSE 86; RESP 18; TEMP 36.9
== END 2023-05-24 00:58 | disposition home or self-care (01) ==
PROVIDERS: Emergency Provider Emergency Medicine; PCP Physician Assistant
DX: R11.2 Nausea with vomiting, unspecified (principal); E80.6 Other disorders of bilirubin metabolism; B34.9 Viral infection, unspecified; J45.909 Unspecified asthma, uncomplicated
CPT/HCPCS: 80053; 81001; 85025; 87086; 96361; 96374; 99285; J2405

== ENCOUNTER 2023-09-12 12:14 | Emergency (ER) | payer MEDICAID, SELFPAY ==
[2023-09-12 12:40] VITALS: BP 142/83; PULSE 93; RESP 18; TEMP 36.6; O2SAT 98; BMI 43.5
--- NOTE | 2023-09-12 12:49 | EXP.UTC ---
Discharge Plan Disposition Patient Disposition: Home, Self-Care Condition: Good Prescriptions Prescriptions: New oseltamivir [Tamiflu] 75 mg capsule 75 mg PO BID Qty: 10 0RF methylprednisolone 4 mg Tablets,Dose Pack 4 mg PO DIRECTED 6 Days Qty: 21 0RF Rx Instructions: Take 1 pack as directed for 6 days albuterol sulfate [Ventolin HFA] 90 mcg/actuation HFA aerosol inhaler 2 puff inhalation Q6H PRN (Reason: shortness of breath or wheezing) Qty: 6.7 0RF ondansetron 4 mg Tablet,Disintegrating 4 mg PO Q8H PRN (Reason: Nausea) Qty: 12 0RF albuterol sulfate 2.5 mg /3 mL (0.083 %) solution for nebulization 2.5 mg inhalation QID PRN (Reason: shortness of breath or wheezing) 30 Days Qty: 90 2RF No Action albuterol sulfate [ProAir HFA] 90 mcg/actuation HFA aerosol inhaler 2 puff inhalation Q6H PRN (Reason: shortness of breath or wheezing) Qty: 8.5 1RF Proair Digihaler 90 mcg/actuation aero powdr breath act w/sensor 2 inh inhalation Q6H PRN (Reason: shortness of breath or wheezing) Qty: 1 0RF Referrals Follow up/Referrals: Cherelle Mueller PA [Primary Care Provider] - See instructions Activity Restrictions/Add. Instructions Additional Instructions/Restrictions: Drink plenty of fluids. Take tylenol or ibuprofen for pain or fever. Take the medications as directed. Follow up with your regular doctor. GO TO THE ER FOR ANY WORSENING SYMPTOMS Clinical Impressions Clinical Impression: Influenza B, Asthma exacerbation Stand Alone Forms Stand Alone Forms: Work/School Release Instructions Patient Instructions: DI for Influenza -- Adult, Oseltamivir Discharge ED Provider: Robin Rodrigues [facility] General Stated complaint: body aches and sore throat Time Seen by Provider: 09/12/23 12:49 History of Present Illness Provider Complaint: She states that she has had fever, chills, body aches, malaise, cough, and sinus congestion for the past 1 day. Related Data Previous Rx's Medication Instructions Recorded albuterol sulfate 90 mcg/actuation 2 puff inhalation Q6H PRN 05/19/22 aerosol inhaler (ProAir HFA) shortness of breath or wheezing #8.5 grams albuterol sulfate 90 mcg/actuation 2 inh inhalation Q6H PRN shortness 05/24/23 breath activated powder of breath or wheezing #1 ea inhaler,sensor (Proair Digihaler) albuterol sulfate 2.5 mg/3 mL 2.5 mg (3 mL) inhalation QID PRN 09/12/23 (0.083 %) solution for nebulization shortness of breath or wheezing 30 days #90 mL albuterol sulfate 90 mcg/actuation 2 puff inhalation Q6H PRN 09/12/23 aerosol inhaler (Ventolin HFA) shortness of breath or wheezing #6.7 grams methylprednisolone 4 mg tablets in 4 mg PO DIRECTED 6 days #21 tabs 09/12/23 a dose pack ondansetron 4 mg disintegrating 4 mg PO Q8H PRN Nausea #12 tabs 09/12/23 tablet oseltamivir 75 mg capsule (Tamiflu) 75 mg PO BID #10 caps 09/12/23 Allergies Allergy/AdvReac Type Severity Reaction Status Date / Time No Known Allergies Allergy Verified 09/12/23 12:59 [facility] Disclaimer: The information contained in this section may have been updated after the patient was seen, as this information can be updated by other users. Medical History Asthma Medial epicondylitis, left elbow Surgical History History of cholecystectomy History of tympanostomy tube placement Family History Father Cancer Coronary artery disease Kidney disease Social History Smoking Status: Never smoker alcohol intake: never current occupational status: employed Travel in the last 8 weeks: None ROS Obtained: Yes All systems reviewed & no additional complaints except as documented Constitutional Constitutional: Reports chills and Reports fever(s) Eyes Eyes: Denies eye discharge ENT Ears, Nose, Mouth, and Throat: Reports as per HPI Cardiovascular Cardiovascular: Denies chest pain Respiratory Respiratory: Denies chest congestion and Reports cough Gastrointestinal Gastrointestingal: Reports nausea; Denies abdominal pain, constipation, cramping, diarrhea or vomiting Musculoskeletal Musculoskeletal: Denies arthralgias Integumentary/Breasts Skin/Breast: Denies rash Neurologic Neurologic: Denies paresthesias Physical Exam General General appearance: alert and in no apparent distress Eye Eye exam: Present normal appearance, PERRL and EOMI ENT ENT exam: Present mucous membranes moist and normal external ear exam Expanded ENT Exam External ear exam: Present normal external inspection TM/Canal exam: Bilateral TM: erythema and bulging Nose exam: Absent sinus tenderness Nasal speculum exam: Bilateral: normal Mouth exam: Present normal external inspection; Absent drooling Teeth exam: Present normal inspection Throat exam: Present tonsillar erythema and tonsillomegaly Neck Neck exam: Present normal inspection, full ROM and trachea midline; Absent tenderness, lymphadenopathy or thyromegaly Chest Chest inspection: Present normal inspection and symmetric chest wall rise; Absent tenderness or rash Respiratory Respiratory exam: Present normal lung sounds bilaterally; Absent respiratory distress, wheezes, stridor or accessory muscle use Cardiovascular Cardiovascular exam: Present regular rate, normal rhythm and normal heart sounds Abdominal Exam Abdominal exam: Present soft; Absent distention, tenderness, guarding, rebound or rigidity Extremities Exam Extremities exam: Present normal inspection, full ROM and normal capillary refill; Absent tenderness or calf tenderness Back Exam Back exam: Present normal inspection and full ROM; Absent tenderness Neurological Exam Neurological exam: Present alert and oriented X3 Psychiatric Psychiatric exam: Present normal affect and normal mood Skin Skin exam: Present warm, dry, intact and normal color Lymphatic Lymphatic Findings: no adenopathy Medical Decision Making Medical Records Medical records reviewed: No I reviewed the patient's medical records. Leo Inquiry Pt receiving controlled substance: No Lab Data Lab results reviewed: Yes I reviewed the patient's lab results.
[2023-09-12 13:18] LABS: UTC Influenza A Antigen Negative (Negative); UTC Influenza B Antigen Positive (Negative); UTC Strep Screen (Rapid) Negative (Negative)
[2023-09-12 13:26] VITALS: BP 142/83; PULSE 93; RESP 18; TEMP 36.6; O2SAT 98
== END 2023-09-12 13:26 | disposition home or self-care (01) ==
PROVIDERS: Emergency Provider Nurse Practitioner Family; PCP Physician Assistant
DX: J10.1 Influenza due to other identified influenza virus with other respiratory manifestations (principal); J45.901 Unspecified asthma with (acute) exacerbation; R05.9 Cough, unspecified; R50.9 Fever, unspecified; R07.0 Pain in throat; R53.81 Other malaise; M79.18 Myalgia, other site
CPT/HCPCS: 87804; 87880; 99212; 99214; G0463

== ENCOUNTER 2023-09-28 15:52 | Emergency (ER) | payer MEDICAID, SELFPAY ==
[2023-09-28 16:45] VITALS: BP 157/89; PULSE 59; RESP 19; TEMP 36.8; O2SAT 97; BMI 42.9
--- NOTE | 2023-09-28 17:02 | ED_ITS ---
Discharge Plan Disposition Patient Disposition: Home, Self-Care Condition: Good Prescriptions Prescriptions: New methylprednisolone [Medrol (Yobani)] 4 mg tablets,dose pack See Rx Instructions .Route .COMPLEX 6 Days Qty: 21 0RF Rx Instructions: taper pack; No Action albuterol sulfate [ProAir HFA] 90 mcg/actuation HFA aerosol inhaler 2 puff inhalation Q6H PRN (Reason: shortness of breath or wheezing) Qty: 8.5 1RF albuterol sulfate 2.5 mg /3 mL (0.083 %) solution for nebulization 2.5 mg inhalation QID PRN (Reason: shortness of breath or wheezing) 30 Days Qty: 90 2RF Referrals Follow up/Referrals: Cherelle Mueller PA [Primary Care Provider] - See instructions Activity Restrictions/Add. Instructions Additional Instructions/Restrictions: *Ibuprofen constanza 6 hours with meal as needed for pain/inflammation *Remember you had a Toradol shot in the clinic today, which is similar to Motrin so do not take any for the next 8-10 hours *Not additional anti-inflammatory like motrin, aleve, advil with the above amount of ibuprofen. You can still take Tylenol every 4 hours as needed if you need something else for pain *Start oral steriod tomorrow *Keep this area active, no movement leads to more stiffness, However take it easy and avoid heavy lifting pushing or pulling *Follow up with you family doctor if no improvement for further treatment Clinical Impressions Clinical Impression: Sciatica Qualifiers: Laterality: bilateral Qualified Code(s): M54.31 - Sciatica, right side Stand Alone Forms Stand Alone Forms: Work/School Release Instructions Patient Instructions: DI for Sciatica Discharge ED Provider: Kecia Cartwright [facility] General Stated complaint: lower back and leg pain Mode of Arrival: Ambulatory Source of Information: Patient Limitations: No Limitations Time Seen by Provider: 09/28/23 17:02 Description of Symptoms (Recalled from Triage Doc. by RN): Pt stated that on monday she has pains in bilateral legs, and today she states the pain shoots from bilateral legs into her lower back . I asked to claify that it went from back into legs and she states that no it goes from legs to back. Denies any other symptoms. She did state she had flu at the end of August. HEENT Symptoms (Recalled from RN notes): Yes Resp Symptoms (Recalled from RN notes): No Skin Symptoms (Recalled from RN notes): No MS Symptoms (Recalled from RN notes): No Functional Status (Recalled from RN notes): n/a History of Present Illness Provider Complaint: Patient states that on Monday she started with pain in her upper legs that went into buttock area and lower back States that pain is worse with walking, raising legs or sitting on it States that it is worse on her left and pain worse in her buttock area Denies known injury Denies loss of control of bowel or bladder Related Data Previous Rx's Medication Instructions Recorded albuterol sulfate 90 mcg/actuation 2 puff inhalation Q6H PRN 05/19/22 aerosol inhaler (ProAir HFA) shortness of breath or wheezing #8.5 grams albuterol sulfate 2.5 mg/3 mL 2.5 mg (3 mL) inhalation QID PRN 09/12/23 (0.083 %) solution for nebulization shortness of breath or wheezing 30 days #90 mL methylprednisolone 4 mg tablets in See Rx Instructions .Route 09/28/23 a dose pack (Medrol (Yobani)) .COMPLEX 6 days #21 tabs Allergies Allergy/AdvReac Type Severity Reaction Status Date / Time No Known Allergies Allergy Verified 09/28/23 16:59 Worker's Comp Is this a Worker's Comp case?: No [facility] Disclaimer: The information contained in this section may have been updated after the patient was seen, as this information can be updated by other users. Medical History Asthma Medial epicondylitis, left elbow Surgical History History of cholecystectomy History of tympanostomy tube placement Family History Father Cancer Coronary artery disease Kidney disease Social History Smoking Status: Never smoker alcohol intake: never current occupational status: employed Travel in the last 8 weeks: None ROS Obtained: Yes All systems reviewed & no additional complaints except as documented and Yes Systems reviewed as appropriate & no additional complaints except as documented Constitutional Constitutional: Reports system reviewed and no additional complaints, except as documented, Reports as per HPI, Denies body ache, Denies chills and Denies fever(s) ENT Ears, Nose, Mouth, and Throat: Reports system reviewed and no additional complaints, except as documented and Reports as per HPI Cardiovascular Cardiovascular: Reports system reviewed and no additional complaints, except as documented and Reports as per HPI Respiratory Respiratory: Reports system reviewed and no additional complaints, except as documented and Reports as per HPI Gastrointestinal Gastrointestingal: Reports system reviewed and no additional complaints, except as documented and as per HPI Genitourinary Female Genitourinary: Reports system reviewed and no additional complaints, except as documented and Reports as per HPI Musculoskeletal Musculoskeletal: Reports system reviewed and no additional complaints, except as documented, Reports as per HPI and Reports other Comments: Pain in bilateral upper legs (worse on right) that goes into buttock area and lower back Integumentary/Breasts Skin/Breast: Reports system reviewed and no additional complaints, except as documented and Reports as per HPI Physical Exam General General appearance: alert and in no apparent distress ENT ENT exam: Present mucous membranes moist Respiratory Respiratory exam: Present normal lung sounds bilaterally; Absent respiratory distress or wheezes Cardiovascular Cardiovascular exam: Present regular rate, normal rhythm and normal heart sounds Abdominal Exam Abdominal exam: Present soft and normal bowel sounds; Absent distention or tenderness Extremities Exam Extremities exam: Present other (see back image below) Back Exam Back exam: Present tenderness, sciatic notch tenderness (R) and sciatic notch tenderness (L) Back 1 view image: 1. reports achy like pain in upper legs that goes into buttock area and lower back, pain worse with walking lifting legs to walk and sitting Denies known injury and denies loss of control of bowel or bladder Right sciatic notch ten derness noted with mild tenderness on left Neurological Exam Neurological exam: Present alert, oriented X3 and normal gait Medical Decision Making Leo Inquiry Pt receiving controlled substance: No Leo was queried for this patient: No Vital Signs: 09/28/23 16:45 Temperature 98.3 F Temperature Source Oral Pulse Rate [Right Radial] 59 L Respiratory Rate 19 Blood Pressure [Right Arm] 157/89 H Blood Pressure Mean [Right Arm] 111 Blood Pressure Source [Right Arm] Automatic Cuff Blood Pressure Position [Right Arm] Sitting 02 Sat by Pulse Oximetry 97 Oxygen Delivery Method Room Air Lab Data Lab results reviewed: Yes I reviewed the patient's lab results. Medical Decision Narrative: Pateint states that pain in much better after medications
[2023-09-28 17:08] LABS: UTC Pregnancy Test, Urine Negative (Negative)
[2023-09-28] MEDS: KETOROLAC 60MG/2ML VIAL 60 MG IM (17:24)
[2023-09-28] MEDS: METHYLPREDNISOLONE SOD SUCC 125MG VIAL 125 MG IM (17:24)
[2023-09-28 17:43] VITALS: BP 157/89; PULSE 59; RESP 18; TEMP 36.8; O2SAT 97
== END 2023-09-28 17:43 | disposition home or self-care (01) ==
PROVIDERS: Emergency Provider Nurse Practitioner; PCP Physician Assistant
DX: M54.31 Sciatica, right side (principal)
CPT/HCPCS: 81025; 96372; 99212; 99214; G0463

== ENCOUNTER 2023-12-08 15:09 | Emergency (ER) | payer MEDICAID, SELFPAY ==
[2023-12-08 15:35] VITALS: BP 156/87; PULSE 89; RESP 20; TEMP 36.8; O2SAT 99; BMI 41.3
--- NOTE | 2023-12-08 15:38 | ED_ITS ---
Discharge Plan Disposition Patient Disposition: Home, Self-Care Condition: Good Prescriptions Prescriptions: New amoxicillin-pot clavulanate 875-125 mg Tablet 1 tab PO Q12H Qty: 20 0RF prednisone 20 mg tablet 20 mg PO BID Qty: 10 0RF No Action albuterol sulfate [ProAir HFA] 90 mcg/actuation HFA aerosol inhaler 2 puff inhalation Q6H PRN (Reason: shortness of breath or wheezing) Qty: 8.5 1RF albuterol sulfate 2.5 mg /3 mL (0.083 %) solution for nebulization 2.5 mg inhalation QID PRN (Reason: shortness of breath or wheezing) 30 Days Qty: 90 2RF methylprednisolone [Medrol (Yobani)] 4 mg tablets,dose pack See Rx Instructions .Route .COMPLEX 6 Days Qty: 21 0RF Rx Instructions: taper pack; Referrals Follow up/Referrals: Cherelle Mueller PA [Primary Care Provider] - See instructions Clinical Impressions Clinical Impression: Bilateral otitis media Stand Alone Forms Stand Alone Forms: Work/School Release Instructions Patient Instructions: DI for Otitis Media (Middle Ear Infection)-Child Discharge ED Provider[place] [facility] [place] General Stated complaint: sore throat, dizzy, body aches Time Seen by Provider: 12/08/23 15:56 History of Present Illness Provider Complaint: Sore throat, cough, dizzy, body aches X 2 days. No fever. Vomited this am. No diarrhea. Onset (ago): day(s) Relieving factors: none Exacerbating factors: none Associated symptoms: nausea/vomiting Treatments prior to arrival: none Related Data Previous Rx's Medication Instructions Recorded albuterol sulfate 90 mcg/actuation 2 puff inhalation Q6H PRN 05/19/22 aerosol inhaler (ProAir HFA) shortness of breath or wheezing #8.5 grams albuterol sulfate 2.5 mg/3 mL 2.5 mg (3 mL) inhalation QID PRN 09/12/23 (0.083 %) solution for nebulization shortness of breath or wheezing 30 days #90 mL methylprednisolone 4 mg tablets in See Rx Instructions .Route 09/28/23 a dose pack (Medrol (Yobani)) .COMPLEX 6 days #21 tabs amoxicillin 875 mg-potassium 1 tab PO Q12H #20 tabs 12/08/23 clavulanate 125 mg tablet prednisone 20 mg tablet 20 mg PO BID #10 tabs 12/08/23 Allergies Allergy/AdvReac Type Severity Reaction Status Date / Time No Known Allergies Allergy Verified 09/28/23 16:59 [facility] Disclaimer: The information contained in this section may have been updated after the patient was seen, as this information can be updated by other users. Medical History Asthma Medial epicondylitis, left elbow Surgical History History of cholecystectomy History of tympanostomy tube placement Family History Father Cancer Coronary artery disease Kidney disease Social History Smoking Status: Never smoker alcohol intake: never current occupational status: employed Travel in the last 8 weeks: None ROS Obtained: Yes All systems reviewed & no additional complaints except as documented Constitutional Constitutional: Reports body ache, Reports fatigue and Reports malaise ENT Ears, Nose, Mouth, and Throat: Reports sore throat Endocrine Endocrine: Reports fatigue Physical Exam General General appearance: alert and in no apparent distress Head Head exam: atraumatic, normocephalic and normal inspection Eye Eye exam: Present normal appearance, PERRL and EOMI ENT ENT exam: Present normal exam, normal oropharynx, mucous membranes moist, TM's normal bilaterally and normal external ear exam Expanded ENT Exam TM/Canal exam: Bilateral TM: erythema Throat exam: Present other (PND) Neck Neck exam: Present normal inspection, full ROM and trachea midline; Absent meningismus or lymphadenopathy Chest Chest inspection: Present normal inspection and symmetric chest wall rise; Abse nt tenderness Respiratory Respiratory exam: Present normal lung sounds bilaterally; Absent respiratory distress Cardiovascular Cardiovascular exam: Present regular rate and normal rhythm; Absent JVD Abdominal Exam Abdominal exam: Present soft and normal bowel sounds; Absent distention, tenderness or guarding Extremities Exam Extremities exam: Present normal inspection, full ROM and normal capillary re fill; Absent calf tenderness Back Exam Back exam: Present normal inspection; Absent tenderness Neurological Exam Neurological exam: Present alert and oriented X3 Psychiatric Psychiatric exam: Present normal affect and normal mood Skin Skin exam: Present warm, dry, intact and normal color Lymphatic Lymphatic Findings: no adenopathy Medical Decision Making Leo Inquiry Pt receiving controlled substance: No Lab Data Lab results reviewed: Yes I reviewed the patient's lab results.
[2023-12-08 15:53] LABS: UTC Influenza A Antigen Negative (Negative); UTC Strep Screen (Rapid) Negative (Negative)
[2023-12-08 15:54] LABS: UTC Influenza B Antigen Negative (Negative)
[2023-12-08 16:05] VITALS: BP 156/87; PULSE 89; RESP 20; TEMP 36.8; O2SAT 99
== END 2023-12-08 16:07 | disposition home or self-care (01) ==
PROVIDERS: Emergency Provider Physician Assistant; PCP Physician Assistant
DX: H66.93 Otitis media, unspecified, bilateral (principal); R42 Dizziness and giddiness; R11.2 Nausea with vomiting, unspecified; R07.0 Pain in throat; R05.9 Cough, unspecified
CPT/HCPCS: 87804; 87880; 99212; 99214; G0463

== ENCOUNTER 2023-12-23 02:57 | Emergency (ER) | payer SELFPAY ==
[2023-12-23 02:57] VITALS: BP 157/95; PULSE 96; RESP 20; TEMP 36.8; O2SAT 97; BMI 41.3
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
[2023-12-23 03:08] LABS: Basophils # 0.1 K/mm3 (0-0.2); Basophils % 0.8 % (0.1-2.0); Eosinophils # 0.3 K/mm3 (0.0-0.4); Eosinophils % 2.8 % (0.1-12.0); Hematocrit 42.8 % (37.0-47.0); Hemoglobin 13.7 g/dL (12.2-16.2); Lymphocytes # 2.1 K/mm3 (0.7-4.5); Lymphocytes % 22.3 % (10-50); Mean Corpuscular Hemoglobin 28.2 pg (27.0-31.2); Mean Corpuscular Volume 88.1 fl (81-99); Monocytes # 0.5 K/mm3 (0.1-1.0); Monocytes % 4.9 % (1.7-9.3); Neutrophils # 6.4 K/mm3 (1.8-7.8); Neutrophils % 69.1 % (37.0-80.0); Platelet Count 360 K/mm3 (142-424); Red Blood Count 4.85 M/mm3 (4.20-5.40); Red Cell Distribution Width 14.3 % (11.5-17.5); White Blood Count 9.3 K/mm3 (4.8-10.8)
[2023-12-23 03:09] LABS: Chloride 109 mmol/L (98-107); Potassium 3.1 mmoL/L (3.5-5.1); Sodium 141 mmol/L (136-145)
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
[2023-12-23 03:11] LABS: Blood Urea Nitrogen 12 mg/dl (7-17); Estimated Glomerular Filt Rate 100 ml/min (>60); GFR (African American) 121 ML/MIN (>60)
[2023-12-23 03:12] LABS: Alanine Aminotransferase 27 U/L (12-78); Albumin Level 3.8 g/dl (3.5-5.0); Albumin/Globulin Ratio 1.3 (1.1-1.8); Alkaline Phosphatase 75 U/L (38-126); Anion Gap 10.1 mEq/L (5-15); Aspartate Amino Transferase 25 U/L (14-36); Bilirubin,Total 0.9 mg/dl (0.2-1.3); Carbon Dioxide 25 mmol/L (22.0-30.0); Total Protein,Serum 6.8 g/dl (6.3-8.2)
[2023-12-23 03:13] LABS: Calcium 9.3 mg/dl (8.4-10.2); Glucose 127 mg/dl (74-100)
[2023-12-23] MEDS: LACTATED RINGERS 1000ML 1,000 ML 999 ML IV (03:15)
[2023-12-23] MEDS: ACETAMINOPHEN 1,000MG/100ML VIAL 1000 MG IV (03:15)
[2023-12-23 03:19] LABS: Ethyl Alcohol < 10 mg/dl (0-10)
[2023-12-23 03:25] LABS: Troponin I < 0.01 ng/ml (0.00-0.034)
[2023-12-23 03:26] LABS: HCG Qualitative, Serum Negative (Negative)
[2023-12-23 04:00] VITALS: BP 175/100; PULSE 94; RESP 23; O2SAT 98
[2023-12-23] MEDS: IOPAMIDOL-370 (76%);100ML BOTTLE 100 ML IV (04:02)
[2023-12-23] MEDS: 0.9 % SODIUM CHLORIDE 50 ML VIAL 100 ML IV (04:02)
[2023-12-23] MEDS: SODIUM CHLORIDE 0.9% 10ML SYR (RAD ONLY) 10 ML IV (04:03)
--- NOTE | 2023-12-23 04:28 | ECG_ITS ---
APPROVED REPORT Exam: Resting ECG HR:87 bpm ECG Measurements Heart Rate 87 AXES DC 183 P 75 QRSd 108 QRS 78 QT 372 T 64 QTc 417 Conclusion SINUS RHYTHM NORMAL ECG Electronically signed by : RODY WEISS, 12/23/2023 16:17:00
[2023-12-23 04:30] VITALS: BP 167/101; PULSE 96; RESP 22; O2SAT 98
--- NOTE | 2023-12-23 04:51 | PC.NURSE ---
patient assisted to bsc, sample collected and sent to lab
[2023-12-23 04:52] LABS: Microscopic, Urine URINE MICROSCOPIC (MICROSCOPIC)
--- NOTE | 2023-12-23 04:52 | US_ITS ---
PROCEDURE INFORMATION: Exam: US Pelvis, Transvaginal Exam date and time: 12/23/2023 4:53 AM Age: 28 years old Clinical indication: Pelvic pain; Additional info: R/O ovarian torsion, large R sided cyst, syncope LABS AND CLINICAL REPORTS: Last menstrual period start date: 11/03/2023 TECHNIQUE: Imaging protocol: Real-time transvaginal pelvic ultrasound with image documentation. Transvaginal imaging was used for better evaluation of the endometrium, adnexa, and/or cervix. COMPARISON: CT ANGIO ABDOMEN PELVIS 12/23/2023 3:50 AM FINDINGS: Uterus: Uterus measures 7.61 cm x 6.67 cm x 5.63 cm. Right ovary/adnexa: Right ovary measures 6.1 cm x 4.46 cm x 2.68 cm. Right ovarian volume is 38.18 mL. 2.7 x 2.9 x 1.9 cm right adnexal cyst. Left ovary/adnexa: Left ovary measures 4.26 cm x 3.24 cm x 3.05 cm. Left ovarian volume is 22.04 mL. Multiple small follicles. Intraperitoneal space: No free fluid. IMPRESSION: Complex right adnexal cyst. Hyperechoic region most consistent with dermoid as suggested on CT.
[2023-12-23 04:54] LABS: Appearance,Urine CLEAR (Clear); Bilirubin,Urine Negative (Negative); Blood, Urine Negative (Negative); Color,Urine YELLOW (Yellow); Glucose,Urine (UA) Negative (Negative); Ketones,Urine Negative (Negative); Leukocyte Esterase,Urine 1+ (Negative); Nitrate,Urine Negative (Negative); PH,Urine 6.5 (5.0-8.5); Protein,Urine Negative (Negative); Specific Gravity, Urine <= 1.005 (1.005-1.030); Urobilinogen,Urine 0.2 EU/dl (0.2)
[2023-12-23 05:06] LABS: Bacteria,Urine Trace /lpf; Barbiturates Screen,Urine Negative ng/ml (<200); Benzodiazepines Screen,Urine Negative ng/ml (<200); WBC,Urine 20-50 #/hpf (0-3)
[2023-12-23 05:07] LABS: Amphetamine/Metha Screen,Urine Negative ng/ml (<1000)
[2023-12-23 05:08] LABS: Cannabinoid Screen,Urine Negative ng/ml (<50); Cocaine Screen,Urine Negative ng/ml (<300)
[2023-12-23 05:09] LABS: Methadone Screen,Urine Negative ng/ml (<300)
[2023-12-23 05:10] LABS: Opiate Screen,Urine Negative ng/ml (<300); Phencyclidine Screen,Urine Negative ng/ml (<25)
[2023-12-23] MEDS: KETOROLAC 30MG/ML VIAL 15 MG IV (05:28)
[2023-12-23 05:41] VITALS: BP 148/84; PULSE 75; RESP 16; TEMP 36.8; O2SAT 98
--- NOTE | 2023-12-26 17:19 | PC.NURSE ---
discussed urine culture final with , ntd contaminated
== END 2023-12-23 05:46 | disposition home or self-care (01) ==
PROVIDERS: Emergency Provider Emergency Medicine
DX: R55 Syncope and collapse (principal); E87.6 Hypokalemia; R10.2 Pelvic and perineal pain; D27.0 Benign neoplasm of right ovary; B96.89 Other specified bacterial agents as the cause of diseases classified elsewhere; F17.210 Nicotine dependence, cigarettes, uncomplicated; V47.5XXA Car driver injured in collision with fixed or stationary object in traffic accident, initial encounter; Y92.410 Unspecified street and highway as the place of occurrence of the external cause
CPT/HCPCS: 70450; 70496; 70498; 71275; 72125; 72128; 72131; 74174; 76830; 80053; 80307; 81001; 84484; 84703; 85025; 87086; 93005; 96361; 96374; 96375; 99285; J0131; Q9967

== ENCOUNTER 2024-03-31 19:00 | Emergency (ER) | payer SELFPAY ==
[2024-03-31 19:10] VITALS: BP 154/86; PULSE 95; RESP 20; TEMP 37.1; O2SAT 97; BMI 42.0
--- NOTE | 2024-03-31 19:11 | EXP.UTC ---
Discharge Plan Disposition Patient Disposition: Home, Self-Care Condition: Good Prescriptions Prescriptions: New sulfamethoxazole-trimethoprim [Bactrim DS] 800-160 mg Tablet 1 tab PO BID 10 Days Qty: 20 0RF cephalexin 500 mg capsule 500 mg PO QID 10 Days Qty: 40 0RF mupirocin 2 % ointment 1 applic topical TID 7 Days Qty: 15 0RF Referrals Follow up/Referrals: Cherelle Mueller PA [Primary Care Provider] - See instructions Activity Restrictions/Add. Instructions Additional Instructions/Restrictions: Keep the area clean and dry. Watch the area for signs of worsening infection, such as worsening redness, swelling, drainage, fever. etc. Take tylenol or ibuprofen for pain. Follow up with your regular doctor. Make sure you follow up for a wound recheck within the next 72 hours with your primary care physician. GO TO THE ER FOR ANY WORSENING SYMPTOMS OR CONCERNS. Clinical Impressions Clinical Impression: Abdominal wall cellulitis, Skin abscess Stand Alone Forms Stand Alone Forms: Work/School Release Instructions Patient Instructions: Cellulitis, Boil Print Language Print Language: Honduran Discharge ED Provider: Robin Rodrigues [facility] General Stated complaint: spot on stomach Time Seen by Provider: 03/31/24 19:10 Related Data Previous Rx's ?Medication ?Instructions ?Recorded cephalexin 500 mg capsule 500 mg PO QID 10 days #40 caps 03/31/24 mupirocin 2 % topical ointment 1 applic topical TID 7 days #15 03/31/24 grams sulfamethoxazole 800 1 tab PO BID 10 days #20 tabs 03/31/24 mg-trimethoprim 160 mg tablet (Bactrim DS) Allergies Allergy/AdvReac Type Severity Reaction Status Date / Time No Known Allergies Allergy Verified 09/28/23 16:59 [facility] Disclaimer: The information contained in this section may have been updated after the patient was seen, as this information can be updated by other users. Medical History Asthma Medial epicondylitis, left elbow Surgical History History of tympanostomy tube placement History of cholecystectomy Family History Father Cancer Coronary artery disease Kidney disease Social History Smoking Status: Current every day smoker alcohol intake: never current occupational status: employed Travel in the last 8 weeks: None ROS Obtained: Yes All systems reviewed & no additional complaints except as documented Constitutional Constitutional: Denies chills and Denies fever(s) Eyes Eyes: Denies eye discharge ENT Ears, Nose, Mouth, and Throat: Denies dizziness, Denies otalgia and Denies sore throat Cardiovascular Cardiovascular: Denies chest pain Respiratory Respiratory: Denies shortness of breath, Denies chest congestion, Denies cough, Denies stridor and Denies wheezing Gastrointestinal Gastrointestingal: Denies nausea or vomiting Musculoskeletal Musculoskeletal: Reports system reviewed and no additional complaints, except as documented and Denies arthralgias Integumentary/Breasts Skin/Breast: Reports as per HPI Neurologic Neurologic: Denies dizziness and Denies paresthesias Allergic/Immunologic Allergic/Immunologic: Denies wheezing Physical Exam General General appearance: alert and in no apparent distress Head Head exam: atraumatic, normocephalic and normal inspection Eye Eye exam: Present normal appearance, PERRL and EOMI ENT ENT exam: Present normal exam, normal oropharynx, mucous membranes moist, TM's normal bilaterally and normal external ear exam Neck Neck exam: Present normal inspection, full ROM and trachea midline; Absent meningismus or lymphadenopathy Chest Chest inspection: Present normal inspection and symmetric chest wall rise; Absent tenderness Respiratory Respiratory exam: Present normal lung sounds bilaterally; Absent respiratory distress Cardiovascular Cardiovascular exam: Present regular rate and normal rhythm; Absent JVD Abdominal Exam Abdominal exam: Present soft and normal bowel sounds; Absent distention, tenderness or guarding Extremities Exam Extremities exam: Present normal inspection, full ROM and normal capillary refill; Absent calf tenderness Back Exam Back exam: Present normal inspection; Absent tenderness Neurological Exam Neurological exam: Present alert and oriented X3 Psychiatric Psychiatric exam: Present normal affect and normal mood Skin Skin exam: Present erythema (there is an area of erythema on her lower abdomen that measures 5 cm diameter. there is an open area in its center, it has a small amount of clear drainage noted. a culture was obtained. ) Lymphatic Lymphatic Findings: no adenopathy Medical Decision Making Medical Records Medical records reviewed: No I reviewed the patient's medical records. Leo Inquiry Pt receiving controlled substance: No
[2024-03-31 19:55] VITALS: BP 154/86; PULSE 95; RESP 20; TEMP 37.1; O2SAT 97
--- NOTE | 2024-04-06 10:26 | PC.NURSE ---
REVIEWED WOUND CULTURE WITH Yulisa AUGUSTIN APRN. NO CHANGES NEEDED AT THIS TIME
== END 2024-03-31 19:58 | disposition home or self-care (01) ==
PROVIDERS: Emergency Provider Nurse Practitioner Family; PCP Physician Assistant
DX: L02.211 Cutaneous abscess of abdominal wall (principal); L03.311 Cellulitis of abdominal wall; B95.7 Other staphylococcus as the cause of diseases classified elsewhere; B95.4 Other streptococcus as the cause of diseases classified elsewhere; B95.61 Methicillin susceptible Staphylococcus aureus infection as the cause of diseases classified elsewhere
CPT/HCPCS: 87070; 87077; 87186; 87205; 99212; 99214; G0463

== ENCOUNTER 2024-06-18 17:27 | Emergency (ER) | payer SELFPAY ==
[2024-06-18 17:40] VITALS: BP 141/85; PULSE 73; RESP 20; TEMP 36.6; O2SAT 96; BMI 41.3
--- NOTE | 2024-06-18 17:41 | ED_ITS ---
Discharge Plan Disposition Patient Disposition: Home, Self-Care Condition: Good Prescriptions Prescriptions: New ibuprofen [IBU] 800 mg tablet 800 mg PO Q8HP PRN (Reason: Moderate Pain) Qty: 30 0RF amoxicillin-pot clavulanate 875-125 mg Tablet 1 tab PO Q12H Qty: 20 0RF Referrals Follow up/Referrals: Cherelle Mueller PA [Primary Care Provider] - See instructions Activity Restrictions/Add. Instructions Additional Instructions/Restrictions: Drink plenty of fluids. Take tylenol or ibuprofen for pain. Take the medications as directed. Follow up with your regular doctor. Follow up with your dentist as soon as they can see you. GO TO THE ER FOR ANY WORSENING SYMPTOMS Clinical Impressions Clinical Impression: Dental abscess, Jaw pain Stand Alone Forms Stand Alone Forms: Work/School Release Instructions Patient Instructions: DI for Tooth Abscess Print Language Print Language: Nauruan Discharge ED Provider: Robin Rodrigues [facility] General Stated complaint: Difficulty swolling,painful left jaw Time Seen by Provider: 06/18/24 17:40 Related Data Previous Rx's ?Medication ?Instructions ?Recorded amoxicillin 875 mg-potassium 1 tab PO Q12H #20 tabs 06/18/24 clavulanate 125 mg tablet ibuprofen 800 mg tablet (IBU) 800 mg PO Q8HP PRN Moderate Pain 06/18/24 #30 tabs Allergies Allergy/AdvReac Type Severity Reaction Status Date / Time No Known Allergies Allergy Verified 09/28/23 16:59 [facility] Disclaimer: The information contained in this section may have been updated after the patient was seen, as this information can be updated by other users. Medical History Asthma Medial epicondylitis, left elbow Surgical History History of tympanostomy tube placement History of cholecystectomy Family History Father Cancer Coronary artery disease Kidney disease Social History Smoking Status: Current every day smoker alcohol intake: never current occupational status: employed Travel in the last 8 weeks: None ROS Obtained: Yes All systems reviewed & no additional complaints except as documented Constitutional Constitutional: Denies chills and Denies fever(s) Eyes Eyes: Denies eye discharge ENT Ears, Nose, Mouth, and Throat: Reports as per HPI, Denies dizziness, Denies otalgia and Denies sore throat Cardiovascular Cardiovascular: Denies chest pain Respiratory Respiratory: Denies shortness of breath, Denies chest congestion, Denies cough, Denies stridor and Denies wheezing Gastrointestinal Gastrointestingal: Denies nausea or vomiting Musculoskeletal Musculoskeletal: Reports system reviewed and no additional complaints, except as documented and Denies arthralgias Integumentary/Breasts Skin/Breast: Denies rash Neurologic Neurologic: Denies dizziness and Denies paresthesias Allergic/Immunologic Allergic/Immunologic: Denies wheezing Physical Exam General General appearance: alert and in no apparent distress Head Head exam: atraumatic, normocephalic and normal inspection Eye Eye exam: Present normal appearance, PERRL and EOMI ENT ENT exam: Present mucous membranes moist, TM's normal bilaterally and normal external ear exam Expanded ENT Exam Nose exam: Absent sinus tenderness Nasal speculum exam: Bilateral: normal Mouth exam: Present normal external inspection; Absent drooling Teeth exam: Present dental caries, fractured tooth #, dental tenderness # and gingival swelling Throat exam: Present normal inspection Neck Neck exam: Present normal inspection, full ROM and trachea midline; Absent meningismus or lymphadenopathy Chest Chest inspection: Present normal inspection and symmetric chest wall rise; Absent tenderness Respiratory Respiratory exam: Present normal lung sounds bilaterally; Absent respiratory distress Cardiovascular Cardiovascular exam: Present regular rate and normal rhythm; Absent JVD Abdominal Exam Abdominal exam: Present soft and normal bowel sounds; Absent distention, tenderness or guarding Extremities Exam Extremities exam: Present normal inspection, full ROM and normal capillary refill; Absent calf tenderness Back Exam Back exam: Present normal inspection; Absent tenderness Neurological Exam Neurological exam: Present alert and oriented X3 Psychiatric Psychiatric exam: Present normal affect and normal mood Skin Skin exam: Present warm, dry, intact and normal color Lymphatic Lymphatic Findings: no adenopathy Medical Decision Making Medical Records Screening: Per USPSTF and CDC recommendations, given the prevalence of disease in our region, it is our hospital?s policy to screen for HIV and viral Hepatitis for all patients aged 18 and over and those with ongoing risk factors. Leo Inquiry Pt receiving controlled substance: No
[2024-06-18 18:00] VITALS: BP 141/85; PULSE 73; RESP 20; TEMP 36.6; O2SAT 96
== END 2024-06-18 18:02 | disposition home or self-care (01) ==
PROVIDERS: Emergency Provider Nurse Practitioner Family; PCP Physician Assistant
DX: K12.2 Cellulitis and abscess of mouth (principal)
CPT/HCPCS: 99213; G0381

== ENCOUNTER 2025-01-31 12:20 | Emergency (ER) | payer SELFPAY ==
--- OUTSIDE RECORDS SUMMARY | 2017-12-14 11:15 | XMS_ITS | Encounter Summary ---
Author Organization [place] [address] Care Team Providers Care Loan Funder Name Role Phone Nellie Awad SPRING FITTER HELPER Primary Care Provider [phone] Encounter Details Date Type Department Care Team (Late st Contact Info) Description 12/14/2017 11:15 AM EDT Hospital Encounter [facility] [place] [address] Social History Tobacco Use Types Packs/Day Years Used Date Smoking Tobacco: Never Smokeless Tobacco: Never Alcohol Use Standard Drinks/Week Comments No 0 (1 standard drink = 0.6 oz pur e alcohol) Sexually Active Control Partners Comments Yes Condom Male Comments No Sex and Gender Information Value Date Recorded Sex Assigned at Not on file Legal Sex Female 7:25 PM EST Gender Identity Not on file Sexual Orientation Not on file COVID-19 Exposure Response Date Recorded In the last month, have you been in contact with someone who was confirmed or suspected to have Coronavirus / COVID-19? No / Unsure 09/02/2021 9:43 AM EST documented as of this encounter Functional Status * Cognitive and Functional Status Question Answer Date of Assessment Author Is the person deaf or does h e/she have serious difficulty hearing? No 11/26/2019 1:15 PM EDT Kimberley Cross RN Is the person blind or does he/she have serious difficulty seeing even when wearing glasses? No 11/26/2019 1:15 PM EDT Armin Stack RN Does this person have seriou s difficulty walking or climbing stairs? No 11/26/2019 1:15 PM EDT Kimberley Stack RN Does this person have diffic ulty dressing or bathing? No 11/26/2019 1:15 PM EDT Kimberley Stack RN * Alcohol Screening Score Answer Date of Assessment Author 0 11/02/2019 2:53 PM [place] Sheri Hollins RN * Drug Screening Score Answer Date of Assessment Author 0 11/02/2019 2:53 PM [place] Sheri Hollins RN * Question Answer Date of Assessment Author How often do you have a drin k containing alcohol? 0 11/02/2019 2:53 PM EDT Sheri Hollins RN * Is the person deaf or does he/she have serious difficulty hearing? Answer Date of Assessment Author No 11/29/2017 12:50 PM Mera Manning RN * Is the person blind or does he/she have serious difficulty seeing even when wearing glasses? Answer Date of Assessment Author No 11/29/2017 12:50 PM Mera Manning RN * Does this person have serious difficulty walking or climbing stairs? Answer Date of Assessment Author No 11/29/2017 12:50 PM Mera Manning RN * Does this person have difficulty dressing or bathing? Answer Date of Assessment Author No 11/29/2017 12:50 PM Mera Manning RN * Because of a physical, mental or emotional condition, does this person have difficulty doing errands alone such as visiting a doctor's office or shopping? Answer Date of Assessment Author No 11/29/2017 12:50 PM Mera Manning RN documented as of this encounter Mental Status * Cognitive and Functional Status Question Answer Entry Date Author Because of a physical, menta l or emotional condition, does this person have difficulty doing errands alone such as visiting a doctor's office or shopping? No 11/26/2019 1:15 PM Kimberley Ayala RN Because of a physical, menta l or emotional condition, does this person have serious difficulty concentrating, remembering or making decisions? No 11/26/2019 1:15 PM Kimberley Ayala RN * Because of a physical, mental or emotional condition, does this person have serious difficulty concentrating, remembering or making decisions? Answer Entry Date Author No 11/29/2017 12:50 PM EDT Mera Pandya RN documented in this encounter Plan of Treatment Not on file documented as of this encounter Visit Diagnoses Not on filedocumented in this encounter Additional Health Concerns Infection Onset Date Last Indicated Resolved Time R/O COVID-19 07/06/2021 07/06/2021 07/06/2021 9:00 PM EST COVID-19 07/06/2021 07/06/2021 08/05/2021 10:1 2 PM EST documented as of this encounter Care Teams Loan Funder Relationship Specialty Start Date End Date Nellie Awad NP [address] [place] [address] PCP - General Nurse Practitioner 11/02/17 documented as of this encounter
--- NOTE | 2025-01-31 12:23 | ED_ITS ---
Discharge Plan Disposition Patient Disposition: Home, Self-Care Condition: Good Prescriptions Prescriptions: New ondansetron 4 mg tablet,disintegrating 4 mg PO QID PRN (Reason: nausea and vomiting) Qty: 10 0RF No Action ibuprofen [IBU] 800 mg tablet 800 mg PO Q8HP PRN (Reason: Moderate Pain) Qty: 30 0RF amoxicillin-pot clavulanate 875-125 mg Tablet 1 tab PO Q12H Qty: 20 0RF Referrals Follow up/Referrals: Cherelle Mueller PA [Primary Care Provider, Medical] - See instructions Activity Restrictions/Add. Instructions Additional Instructions/Restrictions: As we discussed I sent in some nausea medicine to your pharmacy. Also recommend Imodium to help slow down the stool and you can get that [id number]. If you have any persistent new or worsening signs or symptoms including abdominal pain high fever inability tolerate oral intake return to the ER as needed. Clinical Impressions Clinical Impression: COVID-19 Diarrhea Qualifiers: Diarrhea type: unspecified type Qualified Code(s): R19.7 - Diarrhea, unspecified Stand Alone Forms Stand Alone Forms: Work/School Release Instructions Patient Instructions: DI for Diarrhea and Traveler's Diarrhea -- Adult Print Language Print Language: Kiswahili Discharge ED Provider: Ishan Araujo General Adult HPI <PRICE Kevin - Last Filed: 01/31/25 12:45> General Chief complaint: Nausea/Vomiting/Diarrhea Stated complaint: covid exposure diarrhea Time Seen by Provider: 01/31/25 12:23 History of Present Illness HPI narrative: Patient presents for evaluation of diarrhea. Patient's tested positive for COVID last week and patient took home test on Monday and showed she was positive to however she had no symptoms initially. This morning she started having diarrhea and nausea and had to leave work. She denies any vomiting can tolerate oral intake but it makes her nauseated. She has no pain no fever no chest pain no shortness of breath no cough no headache hematochezia melena. Patient is here primarily for a work excuse and for nausea control. Related Data Previous Rx's ?Medication ?Instructions ?Recorded amoxicillin 875 mg-potassium 1 tab PO Q12H #20 tabs clavulanate 125 mg tablet ibuprofen 800 mg tablet (IBU) 800 mg PO Q8HP PRN Moder ate Pain 06/18/24 #30 tabs ondansetron 4 mg disintegrating 4 mg PO QID PRN nausea and 01/31/25 tablet vomiting #10 tabs Allergies Allergy/AdvReac Type Severity Reaction Status Date / Time No Known Allergies Allergy Verified 09/28/23 16:59 PFSH <PRICE Kevin - Last Filed: 01/31/25 12:45> PFS Disclaimer: The information contained in this section may have been updated after the patient was seen, as this information can be updated by other users. Medical History Asthma Medial epicondylitis, left elbow Surgical History History of tympanostomy tube placement History of cholecystectomy Family History Father Cancer Coronary artery disease Kidney disease Social History Smoking Status: Smoker, status unknown alcohol intake: never current occupational status: employed Travel in the last 8 weeks?: None Have you lived/traveled outside US in past 30 days?: No Contact w/someone who lives/traveled outside US past 30 days?: No Exposure to someone with infectious disease in past 14 days?: No Do you have a fever (greater than 100.4 F or 38 C)?: No Have you tested positive for COVID-19?: No Exposed to someone with COVID-19 in past 14 days?: Yes Do you have a sore throat?: No Do you have a cough?: No Do you have any weakness?: No Do you have any diarrhea?: Yes Are you experiencing any unusual bleeding?: No Do you have any muscle aches/pain?: No Do you have any abdominal pain?: No Are you experiencing loss of taste or smell?: No <PRICE Kevin - Last Filed: 01/31/25 12:45> ROS Obtained: Yes Systems reviewed as appropriate & no additional complaints except as documented Physical Exam <PRICE Kevin - Last Filed: 01/31/25 12:45> General General appearance: alert and in no apparent distress Respiratory Respiratory exam: Present normal lung sounds bilaterally Cardiovascular Cardiovascular exam: Present regular rate Neurological Exam Neurological exam: Present alert and oriented X3 Medical Decision Making <PRICE Kevin - Last Filed: 01/31/25 12:45> Medical Records Medical records reviewed: Yes I reviewed the patient's medical records. Screening: Per USPSTF and CDC recommendations, given the prevalence of disease in our region, it is our hospital?s policy to screen for HIV and viral Hepatitis for all patients aged 18 and over and those with ongoing risk factors. Leo Inquiry Pt receiving controlled substance: No Vital Signs: 01/31/25 12:27 01/31/25 12:34 Temperature 97.8 F 97.8 F Temperature Source Oral Oral Pulse Rate 71 Pulse Rate [Left] 71 Respiratory Rate 16 16 Blood Pressure 163/96 H Blood Pressure [Right Arm] 163/96 H Blood Pressure Mean [Right Arm] 118 Blood Pressure Source Automatic Cuff Blood Pressure Source [Right Arm] Automatic Cuff Blood Pressure Position Sitting Blood Pressure Position [Right Arm] Sitting 02 Sat by Pulse Oximetry 100 Oxygen Delivery Method Room Air Room Air Lab Data Lab results reviewed: Yes I reviewed the patient's lab results. Lab Results 01/31/25 12:39: SARS-CoV-2 (PCR) Detected A, Influenza A Untype (PCR) Not detected, Influenza Type B (PCR) Not detected Orders (Tests/Meds): ED MEDICATIONS Discontinued Medications Generic Name Dose Route Start Last Admin Trade Name Freq PRN Reason Stop Dose Admin Ondansetron HCl 4 mg 01/31/25 12:35 01/31/25 12:37 Ondansetron 4mg Odt SL 01/31/25 12:36 4 mg ONCE ONE Administration ORDERS Category Date Time Status Rapid PCR Covid and Flu A/B Stat Lab 01/31/25 12:39 Completed Medical Decision Narrative: In summary patient is a 29-year-old female who presents to the emergency department for evaluation of diarrhea and COVID-positive along with nausea. Patient is hemodynamically stable with a blood pressure of 163/96 heart rate 71 with sinus rhythm on the bedside monitor breathing 16 times a minute satting at 100% on room air upon arrival, afebrile currently at 97.8. Physical exam remarkable for well-nourished well-developed 29-year-old female who otherwise in no acute distress. Breath sounds clear and equal bilaterally to the bases without adventitious sounds abdomen soft nontender no rebound guarding or rigidity. Bowel sounds hyperactive.. Differential diagnosis includes infectious diarrhea versus reactive diarrhea versus gastroenteritis etc. However patient has no red flags to suggest anything other than what she has described thus alternative diagnosis is were not pursued. Initial workup will be conducted with COVID and flu swabs at patient's request. Initial interventions include Zofran. I had a shared decision-making discussion with the patient regarding her presentation and symptoms and patient is not interested in IV fluids or laboratory investigation as so far she is not febrile but has decreased brennan etite. Viewed patient directed decision making and discharge patient would prefer to just medication for nausea and a COVID test. Given this patient is appropriate for discharge with a prescription for Zofran with first dose given here and strict return precautions. <Ishan Araujo MD - Last Filed: 01/31/25 14:06> Vital Signs: 01/31/25 12:27 01/31/25 12:34 Temperature 97.8 F 97.8 F Temperature Source Oral Oral Pulse Rate 71 Pulse Rate [Left] 71 Respiratory Rate 16 16 Blood Pressure 163/96 H Blood Pressure [Right Arm] 163/96 H Blood Pressure Mean [Right Arm] 118 Blood Pressure Source Automatic Cuff Blood Pressure Source [Right Arm] Automatic Cuff Blood Pressure Position Sitting Blood Pressure Position [Right Arm] Sitting 02 Sat by Pulse Oximetry 100 Oxygen Delivery Method Room Air Room Air Lab Data Lab Results 01/31/25 12:39: SARS-CoV-2 (PCR) Detected A, Influenza A Untype (PCR) Not detected, Influenza Type B (PCR) Not detected Orders (Tests/Meds): ED MEDICATIONS Discontinued Medications Generic Name Dose Route Start Last Admin Trade Name Reed PRN Reason Stop Dose Admin Ondansetron HCl 4 mg 01/31/25 12:35 01/31/25 12:37 Ondansetron 4mg Odt SL 01/31/25 12:36 4 mg ONCE ONE Administration ORDERS Category Date Time Status Rapid PCR Covid and Flu A/B Stat Lab 01/31/25 12:39 Completed Medical Decision Narrative: In summary patient is a 29-year-old female who presents to the emergency department for evaluation of diarrhea and COVID-positive along with nausea. Patient is hemodynamically stable with a blood pressure of 163/96 heart rate 71 with sinus rhythm on the bedside monitor breathing 16 times a minute satting at 100% on room air upon arrival, afebrile currently at 97.8. Physical exam remarkable for well-nourished well-developed 29-year-old female who otherwise in no acute distress. Breath sounds clear and equal bilaterally to the bases without adventitious sounds abdomen soft nontender no rebound guarding or rigidity. Bowel sounds hyperactive.. Differential diagnosis includes infectious diarrhea versus reactive diarrhea versus gastroenteritis etc. However patient has no red flags to suggest anything other than what she has described thus alternative diagnosis is were not pursued. Initial workup will be conducted with COVID and flu swabs at patient's request. Initial interventions include Zofran. I had a shared decision-making discussion with the patient regarding her presentation and symptoms and patient is not interested in IV fluids or laboratory investigation as so far she is not febrile but has decreased appetit e. Viewed patient directed decision making and discharge patient would prefer to just medication for nausea and a COVID test. Given this patient is appropriate for discharge with a prescription for Zofran with first dose given here and strict return precautions. I was consulted by the BRENNAN, and we discussed the complexity of the problems being addressed. I approved the treatment and management plan for this patient's care in the Emergency Department, thus performing a substantive portion of the medical decision making. Ishan Araujo MD Critical Care <PRICE Kevin - Last Filed: 01/31/25 12:45> Critical Care Time Critical Care Time: No
[2025-01-31 12:27] VITALS: BP 163/96; PULSE 71; RESP 16; TEMP 36.6; O2SAT 100; BMI 42.9
--- OUTSIDE RECORDS SUMMARY | 2025-01-31 12:33 | XMS_ITS | Clinical Summary ---
Author Organization [facility] Address [address] [place] [address] Phone Care Team Providers Care Material Expediter Name Role Phone Nellie Awad NP Primary Care Provider [phone] Allergies No known active allergies Medications ondansetron (ZOFRAN-ODT) 4 mg Oral Tablet, Rapid Dissolve Take 1 Tablet by mouth every 4 hours as needed for Nausea. 15 Tablet 1 Active Additional Information Patient not taking.Reason: Pt electing to not take the medication, Reported on 05/20/2022 Active Problems Problem Noted Date Diagnosed Date Mild intermittent asthma without complication Overview (06/28/2017): Uses occ inhaler Chronic gout of knee 06/28/2017 Overview (06/28/2017): bilat knees and wrist Sensorineural hearing loss, bilateral 04/24/2014 Resolved Problems Problem Noted Date Diagnosed Date Resolved Date state 11/26/2019 01/06/2020 cramps 11/26/2019 01/06/2020 delivery 11/21/2019 11/26/2019 Overview (11/21/2019): 11/21/[address] [place] [address] [place], taken to [facility], baby tx'd to [facility] Rubella non-immune status, antepartum 08/21/2019 01/06/2020 Overview (08/21/2019): Rubella Equivocal NOO Offer MMR pp History of delivery, currently 06/26/2019 01/06/2020 Overview (11/06/2019): 11/27/17 G1- PTL @ 31 wks w/ in ambulance Desires Tricia BMI 39.0-39.9,adult 06/26/2019 01/06/20 20 Overview (07/09/2019): HgbA1c 5.4 Family history of diabetes mellitus in father 06/28/20 17 09/20/2017 Overview (06/28/2017): And sister dx'd at age 19 Immunizations Immunization Administration Dates Next Due Influenza Patient Reported 05/13/2019 Tdap 04/11/2019,11/28/2017 Surgical History Surgery Date Site/Laterality Comments TYMPANOSTOMY TUBE PLACEMENT CHOLECYSTECTOMY 12/20/2019 Medical History Medical History Date Comments Family history of diabetes m ellitus in father 06/28/2017 And sister dx'd at age 19 Chlamydia 06/2017 Asthma delivery 11/21/2019 11/21/19 [address] [place], taken to [facility], baby tx'd to [facility] Family History Medical History Relation Name Comments Diabetes Father Heart Disease Father Seizures Maternal Grandfather Diabetes Maternal Grandmother Heart Disease Maternal Grandmother Kidney Disease Maternal Grandmother Liver Disease Maternal Grandmother Stroke Maternal Grandmother No Known Problems Mother Unknown Paternal Grandfather Diabetes Paternal Grandmother Unknown Paternal Grandmother Diabetes Sister Relation Name Status Comments Father Alive Maternal Grandfather Maternal Grandmother Alive Mother Alive Paternal Grandfather Paternal Grandmother Sister Social History Tobacco Use Types Packs/Day Years [...] on file Sexual Orientation Not on file Obstetrics History Para Term AB IAB SAB Ectopic Multiple Livin g Live Births 2 2 2 0 2 2 Date Outcome GA Total Labor Labor/2nd/3rd Weight Sex Type Anes PTL Jovanna A1 A5 Name Clin 018 31w 0d 4 lb 0.2 oz (1.82 kg) M Vag-S pont None Y Living [employer] Delivery Location:[facility] (EDG 1B) 020 33w 1d Vag-S pont Living Last Filed Vital Signs Vital Sign Reading Time Taken Comments Blood Pressure 124/80 09/02/2021 10:17 AM EST Pulse 77 07/06/2021 8:27 PM EST Temperature 36.4 C (97.5 F) 07/06/2021 5:58 PM EST Respiratory Rate 18 07/06/2021 8:27 PM EST Oxygen Saturation 96% 07/06/2021 8:27 PM EST Inhaled Oxygen Concentration - - Weight 120.8 kg (266 lb 6.4 oz) 022 10:17 AM EST Height 170.2 cm (5' 7 ) 09/02/2021 10:1 7 AM EST Body Mass Index 41.72 09/02/2021 10:17 AM EST Plan of Treatment Health Maintenance Due Date Last Done Comments Annual Wellness Exam 1999 Hepatitis B Vaccine (1 of 3 - 19+ 3-dose series) 2015 Pneumococcal Vaccine 0-49 (1 of 2 - PCV) 2015 COVID-19 Vaccine ( season) 2024 08/24/2021, 05/21/2021 Cervical Cancer Screening 09/02/2024 Pap Smear 09/02/2024 09/02/2021, 03/22, 06/28/2017 Influenza Vaccine (Season Ended) 2025 07/10/2019, 05/13/2019 DTaP/TDaP/Td (3 - Td or Tdap) 04/11/2029 04/11/2019, 11/28/2017 Chlamydia Screening Discontinued 09/02/2021, 06/26/2019, 04/11/2019, Additional history exists Meningococcal B Vaccine Aged Out No l onger eligible based on patient's age to complete this topic Procedures Procedure Name Priority Date/Time Associated Diagnosis Comments GC CHLAMYDIA THIN PREP Routine 09/02/2021 11:04 AM EST Well woman exam with routine gynecological exam CAMPUS PRESIDENT CYTOLOGY REQUEST (PAP ONLY) Routine 09/02/2021 11:04 AM EST Well woman exam with routine gynecological exam from Last 3 Months or Most Recently Relevant to Health Maintenance Results * CAMPUS PRESIDENT CYTOLOGY REQUEST (PAP ONLY) (09/02/2021 11:04 AM EST) CASE REPORT Gynecologic Cytology Report Case: [id number] Authorizing Provider: Mica Mayfield CNM Collected: 09/02/2021 1104 Ordering Location: [facility] Edg Received: 09/02/2021 1104 First Screen: Mary Ledezma CT Specimen: LIQUID-BASED PAP - CERVICAL/ENDOCERV ICAL, Cervix, Endocervical 09/06/2021 10:28 AM EST [email or web address] PAP FINAL DIAGNOSIS Negative for intraepithelial lesion or malignancy 09/06/2021 10:[address] [email or web address] at 1028 EST MICROSCOPIC DESCRIPTION Microscopic examination is performed and the findings corroborate the diagnosis. 09/06/2021 10:28 AM EST [email or web address] PAP SMEAR ADEQUACY Satisfactory for evaluation 09/06/2021 10:28 AM [facility] ENDOCERVICAL T-ZONE Transformation zone present 09/06/2021 10:28 AM EST [facility] EMBEDDED IMAGES 10:28 AM [facility] PAP DISCLAIMER The Pap Smear is a screening test that aids in the detection of cervical cancer and cancer precursors. Both false positive and false negative results can occur. The test should be used at regular intervals, and positive results should be confirmed before definitive therapy. Processed using the ThinPrep Relay Adjuster Automated cytology screening device ([employer]). 09/06/2021 10:28 AM EST [email or web address] PAP OTHER FINDINGS Endometrial cells present. Many acute inflammatory cells noted. 09/06/2021 10:28 AM EST [email or web address] Thin Prep ENDOCERVICAL STRUCTURE / Unknown 09/02/2021 11:04 AM EST 09/02/2021 11:04 AM EST Mica Mayfield CNM CYTOLOGY ORDERABLES Fin al Result [facility] [address] [facility] [place] [address] * GC CHLAMYDIA THIN PREP (09/02/2021 11:04 AM EST) Chlamydia trachomatis Not Detected Not Detected 09/03/2021 2:20 PM EST [facility]REFERRED [facility], [employer] Neisseria gonorrhoeae Not Detected Not Detected 09/03/2021 2:20 PM EST PREFERRED [facility], [employer] Thin Prep SPECIMEN FROM UTERINE CERVIX / Unknown 09/02/2021 11:04 AM EST 09/02/2021 11:04 AM EST Narrative PREFERRED [facility], [facility] - 09/03/2021 2:20 PM EST Testing methodology is tableau analyst mediated amplification (TMA) using the Aptima Combo 2 assay from [employer]. A negative result does not completely rule out a Chlamydia trachomatis or Neisseria gonorrhoeae infection due to potential inhibitors or levels present below the limit of detection by this assay. Results are dependent on proper collection and transport of specimen. This test is indicated for medical purposes only and should not be used for legal or forensic purposes. The performance characteristics of this assay were validated by the testing laboratory. This assay is FDA cleared to test the following specimens: clinician-collected endocervical, vaginal, male urethral swab specimens, rectal swabs, and throat/pharyngeal swabs; patient collected vaginal specimens within a clinic setting; Thin Prep Specimens in [employer]; and first-stream, unpreserved male and female urine specimens. Detailed methodology is available upon request. us Mica Mayfield CNM MICROBIOLOGY - GENERAL ORDERABLES Final Result PREFERRED [facility], [facility] [address] [facility], [place] [address] from Last 3 Months or Most Recently Relevant to Health Maintenance Insurance [employer] [place] [address] [place] [address] MDR Advance Directives For more information, please contact: [phone] * Full Code (Latest Code Status on File) Date Activated Date Inactivated Comments 11/02/2019 6:47 PM 11/04/2019 8:46 PM * Full Code Date Activated Date Inactivated Comments 11/28/2017 1:40 AM 11/29/2017 5:59 PM Care Teams Material Expediter Relationship Specialty Start Date End Date Nellie Awad NP [address] [place] [address] PCP - General Nurse Practitioner 11/02/17
--- OUTSIDE RECORDS SUMMARY | 2025-01-31 12:33 | XMS_ITS | Clinical Summary ---
Author Organization Healthcare Address [facility] [place]note 2] [place] [address] Care Team Providers Care Director Geothermal Operations Name Role Phone Robin Watters MD Primary Care Provider [phone] Family History Medical History Relation Name Comments Diabetes Father Conversions - Other Mother deafness or hearing loss Cardiac disorder Other 1 Diabetes Other 2 Hypertension Other 3 Allergic rhinitis Sister Relation Name Status Comments Father Mother Other 1 Other 2 Other 3 Sister Social History Tobacco Use Types Packs/Day Years Used Date Smoking Tobacco: Never Alcohol Use Standard Drinks/Week Comments No 0 (1 standard drink = 0.6 oz pur e alcohol) Comments Unknown Sex and Gender Information Value Date Recorded Sex Assigned at Not on file Legal Sex Female 8:36 PM EDT Gender Identity Not on file Sexual Orientation Not on file Last Filed Vital Signs Vital Sign Reading Time Taken Comments Blood Pressure - - Pulse - - Temperature - - Respiratory Rate - - Oxygen Saturation - - Inhaled Oxygen Concentration - - Weight 109 kg (241 lb 0.1 oz) 09/28/2015 9:48 AM EST Height 168.9 cm (5' 6.5 ) 09/28/2015 9:48 AM EST Body Mass Index 38.32 09/28/2015 9:48 AM EST Plan of Treatment Not on file Care Teams Director Geothermal Operations Relationship Specialty Start Date End Date Robin Watters MD [address] [place] [address] PCP - General 01/01/21
--- OUTSIDE RECORDS SUMMARY | 2025-01-31 12:33 | XMS_ITS | Encounter Summary ---
Author Organization [place] [address] Care Team Providers Care Dungeon Master Name Role Phone Nellie Awad NP Primary Care Provider [phone] Encounter Details Date Type Department Care Team (Late st Contact Info) Description 01/16/2020 Hospital Encounter [facility] [place] [id number] Social History Tobacco Use Types Packs/Day Years [...] as of this encounter Functional Status * Is the person deaf or does he/she have serious difficulty hearing? Answer Date of Assessment Author No 11/26/2019 1:15 PM Philip Ayala RN * Is the person blind or does he/she have serious difficulty seeing even when wearing glasses? Answer Date of Assessment Author No 11/26/2019 1:15 PM Philip Ayala RN * Does this person have serious difficulty walking or climbing stairs? Answer Date of Assessment Author No 11/26/2019 1:15 PM Philip Ayala RN * Does this person have difficulty dressing or bathing? Answer Date of Assessment Author No 11/26/2019 1:15 PM Philip Ayala RN * Because of a physical, mental or emotional condition, does this person have difficulty doing errands alone such as visiting a doctor's office or shopping? Answer Date of Assessment Author No 11/26/2019 1:15 PM Philip Ayala RN documented as of this encounter Mental Status * Because of a physical, mental or emotional condition, does this person have serious difficulty concentrating, remembering or making decisions? Answer Entry Date Author No 11/26/2019 1:15 PM Philip Ayala RN documented in this encounter Plan of Treatment Not on file documented as of this encounter Visit Diagnoses Not on filedocumented in this encounter Additional Health Concerns Infection Onset Date Last Indicated Resolved Time R/O COVID-19 07/06/2021 07/06/2021 07/06/2021 9:00 PM EST COVID-19 07/06/2021 07/06/2021 08/05/2021 10:1 2 PM EST documented as of this encounter Care Teams Dungeon Master Relationship Specialty Start Date End Date Nellie Awad NP [address] [place] [address] PCP - General Nurse Practitioner 11/02/17 documented as of this encounter
[2025-01-31 12:34] VITALS: BP 163/96; PULSE 71; RESP 16; TEMP 36.6; O2SAT 100
--- NOTE | 2025-01-31 12:34 | PC.NURSE ---
Father called ER, speaking with pt on phone at this time.
[2025-01-31] MEDS: ONDANSETRON 4MG ODT 4 MG SL (12:37)
[2025-01-31 12:43] LABS: Influenza A, PCR Not Detected (NotDetected); Influenza B, PCR Not Detected (NotDetected)
[2025-01-31 13:08] LABS: Coronavirus 19, PCR Detected (NotDetected)
--- NOTE | 2025-01-31 22:36 | PC.NURSE ---
pt called requesting respiratory panel results, this RN spoke with patient and notifed her of positive COVID-19 result. Patient denied any questions at this time.
== END 2025-01-31 12:51 | disposition home or self-care (01) ==
PROVIDERS: Physician Assistant; Emergency Provider Emergency Medicine; PCP Physician Assistant
DX: U07.1 COVID-19 (principal); R19.7 Diarrhea, unspecified; R11.2 Nausea with vomiting, unspecified
CPT/HCPCS: 87636; 99283; Q0162